=== PATIENT | male | born 1975 | race Caucasian/White ===

== ENCOUNTER 2018-12-26 15:46 | Inpatient (IN) | payer MEDICARE, MEDICAID ==
[~2018-12-26] VITALS: Ht 180.3 cm; Wt 91.7 kg
[~2018-12-26 15:46] MED LIST: ETOMIDATE 2 MG/ML 10 ML VIAL IVP ONE; VECURONIUM BROMIDE 10 MG/VIAL IVP ONE
[2018-12-26] MEDS ORDERED: SODIUM CHLORIDE 0.9% 1,000 ML IV ONE ×3 (16:00→17:15)
[2018-12-26] MEDS ORDERED: 0.9% SODIUM CHLORIDE 10 ML SYRINGE IVP PRN (16:00)
[2018-12-26] MEDS ORDERED: VECURONIUM BROMIDE 10 MG/VIAL IVP ONE (16:15)
[2018-12-26] MEDS ORDERED: ETOMIDATE 2 MG/ML 10 ML VIAL IVP ONE (16:15)
[2018-12-26 16:36] LABS: BASOPHILS % (AUTO) 0.4 % (0.0-2.0); HEMATOCRIT 39.1 % (41-53); HEMOGLOBIN 12.7 g/dL (13.5-17.5); LYMPHOCYTES # (AUTO) 1.8 K/uL (1.0-4.8); LYMPHOCYTES % (AUTO) 51.9 % (22.0-44.0); MEAN CORPUSCULAR HEMOGLOBIN 28.8 pg (26.0-34.0); MEAN CORPUSCULAR HGB CONC 32.6 G/dL (31.0-37.0); MEAN CORPUSCULAR VOLUME 88 fL (80-100); MONOCYTES # (AUTO) 0.2 K/uL (0.1-1.0); MONOCYTES % (AUTO) 6.3 % (2.0-9.0); NEUTROPHILS # (AUTO) 1.3 K/uL (1.8-7.7); NEUTROPHILS % (AUTO) 39.4 % (40.0-70.0); RED BLOOD CELL COUNT(AUTO) 4.43 MIL/uL (4.50-5.90); RED CELL DISTRIBUTION WIDTH 14.9 % (11.5-14.5)
[2018-12-26 16:36] LABS: APPEARANCE,URINE CLOUDY (CLEAR); GLUCOSE, URINE (UA) NEGATIVE (NEGATIVE); KETONES,URINE NEGATIVE (NEGATIVE); LEUKOCYTE ESTERASE ,URINE NEGATIVE (NEGATIVE); NITRATE,URINE NEGATIVE (NEGATIVE); OCCULT BLOOD,URINE NEGATIVE (NEGATIVE); PROTEIN,URINE POS 1+ (NEGATIVE); UROBILINOGEN,URINE 0.2 mg/dL (<=1.0)
[2018-12-26 16:37] LABS: BILIRUBIN,URINE PRELIM. POSITIVE (NEGATIVE)
[2018-12-26 16:43] LABS: BACTERIA,URINE Few /HPF (None Seen); RBC,URINE None Seen /HPF (0-2); SQUAMOUS EPITHELIAL CELL,UR Rare /LPF (None Seen)
[2018-12-26] MEDS: PROPOFOL 1000 MG/ISO-OSM 100 ML IV PRN (16:44)
[2018-12-26 16:45] LABS: ANION GAP 12 mmol/L (8-16); CARBON DIOXIDE 19 mmol/L (22-29); CHLORIDE 105 mmol/L (98-107); CREATININE 1.91 mg/dL (0.60-1.30); GLOMERULAR FILTR. RATE CALC 38 mL/min (>60); GLUCOSE,RANDOM 173 mg/dL (70-110); POTASSIUM 3.9 mmol/L (3.5-5.1); SODIUM SERUM 136 mmol/L (136-145); UREA NITROGEN, BLOOD 12 mg/dL (7-18)
[2018-12-26 16:47] LABS: B-TYPE NATRIURETIC PEPTIDE < 5 pg/mL (0-100)
[2018-12-26] MEDS ORDERED: ACETAMINOPHEN 1000 MG/ISO-OSM 100 ML IV ONE ×2 (16:52→17:00)
[2018-12-26 16:55] LABS: INR 1.1 (0.9-1.1); PROTHROMBIN TIME 11.1 SEC (9.4-11.6)
[2018-12-26] MEDS ORDERED: ASPIRIN 300 MG RECTAL SUPPOSITORY PR ONE (17:00)
[2018-12-26 17:01] LABS: LACTIC ACID 3.2 mmol/L (0.4-2.0)
[2018-12-26 17:02] LABS: ABG A-A DIFF O2 413.1 mmHg (10-20.0); ABG BASE EXCESS -10.2 mmol/L (-2.0-3.0); ABG CARBOXYHEMOGLOBIN 1.1 % (0.0-1.5); ABG HCO3 16.7 mmol/L (22.0-26.0); ABG METHEMOGLOBIN 0.6 % (0.0-1.5); ABG OXYGEN CONTENT 18.4 mL/dL (15.0-23.0); ABG OXYGEN SATURATION 98.9 % (95.0-98.0); ABG OXYHEMOGLOBIN 97.2 % (94.0-100.0); ABG PCO2 50 mmHg (35-45); ABG TOTAL HEMOGLOBIN 13.1 G/dL (12.0-18.0); PO2, ARTERIAL BG 242.3 mmHg (88.0-96.0); SOURCE, BLOOD GAS ARTERIAL; TEMPERATURE, FAHRENHEIT, BG 103.6 FAHREN (96.0-98.6)
[2018-12-26 17:03] LABS: ABG PH 7.182 (7.35-7.450)
[2018-12-26 17:04] LABS: O2 DEVICE,BLOOD GAS VENTILATOR (ROOM AIR); PEEP,BG 5 cm H2O; SITE, BLOOD GAS RT RADIAL; VT, ABG 500 ml
[2018-12-26 17:09] LABS: ALANINE AMINOTRANSFERASE 22 U/L (12-78); ALBUMIN 3.1 g/dL (3.4-5.0); ALKALINE PHOSPHATASE 62 U/L (46-116); ASPARTATE AMINOTRANSFERASE 25 U/L (15-37); BILIRUBIN,TOTAL 0.4 mg/dL (0.1-1.0); CREATINE KINASE, TOTAL ONLY 99 U/L (39-308); TOTAL PROTEIN, SERUM 6.6 g/dL (6.4-8.2)
[2018-12-26 17:10] LABS: AMPHET/METH SCREEN,URINE POSITIVE (NEGATIVE); BARBITURATE SCREEN, URINE NEGATIVE (NEGATIVE); BENZODIAZEPINES SCREEN,URINE NEGATIVE (NEGATIVE); CANNABINOID SCREEN,URINE NEGATIVE (NEGATIVE); COCAINE SCREEN,URINE NEGATIVE (NEGATIVE); METHADONE SCREEN, URINE NEGATIVE (NEGATIVE); OPIATE SCREEN,URINE NEGATIVE (NEGATIVE)
[2018-12-26 17:13] LABS: PHENCYCLIDINE SCREEN,URINE NEGATIVE (NEGATIVE)
[2018-12-26] MEDS ORDERED: VANCOMYCIN HCL 1 GM/D5% WATER 200 ML IV ONE (17:30)
[2018-12-26] MEDS ORDERED: PIPERACILLIN/TAZO 3.375 GM/D5W 50 ML IV ONE (17:30)
[2018-12-26] MEDS ORDERED: ASPIRIN 600 MG RECTAL SUPPOSITORY PR ONE (17:30)
[2018-12-26 17:38] LABS: PLATELET COUNT (AUTO) 66 K/uL (150-450)
[2018-12-26] MEDS ORDERED: NOREPINEPHRINE 4 MG/D5%-WATER 250 ML IV PRN (18:19)
[2018-12-26] MEDS ORDERED: HEPARIN SODIUM 25000 UNITS/D5W 250 ML IV PRN (18:19)
[2018-12-26] MEDS ORDERED: HEPARIN SODIUM,PORCINE 5,000 UNITS/ML VIAL IVP PRN ×2 (18:30)
[2018-12-26] MEDS ORDERED: HEPARIN SODIUM,PORCINE 5,000 UNITS/ML VIAL IVP ONE ×2 (18:30)
[2018-12-26] MEDS ORDERED: POTASSIUM PHOS,M-BASIC-D-BASIC 30 MEQ in DEXTROSE 5%-WATER 150 ML IV ONE (19:00)
[2018-12-26] MEDS ORDERED: SODIUM CHLORIDE 0.9% 1,000 ML IV SCH (19:00)
[2018-12-26] MEDS ORDERED: BISACODYL 10 MG RECTAL RECTAL SUPPOSITORY PR PRN (19:00)
[2018-12-26 19:04] LABS: PATHOLOGY REVIEW, DIFF YES
[2018-12-26 19:11] LABS: OCCULT BLOOD,GASTRIC FLUID POSITIVE (NEGATIVE)
[2018-12-26] MEDS ORDERED: DEXTROSE 50%-WATER 25 GM/50 ML SYRINGE IVP PRN (19:15)
[2018-12-26] MEDS ORDERED: ACETAMINOPHEN 325 MG TABLET PO PRN (19:30)
[2018-12-26] MEDS ORDERED: CefTRIAXone 1 GM/DEXTROSE 50 ML IV SCH (20:00)
[2018-12-26] MEDS ORDERED: DOXYCYCLINE HYCLATE 100 MG in DEXTROSE 5%-WATER 100 ML IV SCH (21:00)
[2018-12-26] MEDS ORDERED: *CLINICAL-LEVOFLOXACIN IVPB DOSING CLINICAL ONE (21:15)
[2018-12-26] MEDS: RINGERS SOLUTION,LACTATED 1,000 ML IV SCH (22:35)
[2018-12-26] MEDS: LevETIRAcetam 500 MG in DEXTROSE 5%-WATER 100 ML IV SCH (22:41)
[2018-12-26] MEDS: IPRATROPIUM BROMIDE 0.5 MG/2.5 ML NEB SOLUTION NEB SCH (22:45)
[2018-12-26] MEDS: ALBUTEROL SULFATE 2.5 MG/0.5 ML NEB SOLUTION NEB SCH (22:45)
[2018-12-26] MEDS: LEVOFLOXACIN 750 MG/D5% WATER 150 ML IV SCH (22:51)
[2018-12-26] MEDS: DOCUSATE SODIUM 100 MG CAPSULE PO SCH (23:04)
[2018-12-26] MEDS: PANTOPRAZOLE SODIUM 40 MG/VIAL IVP SCH (23:05)
[2018-12-27] VITALS (7 sets, daily range): BP systolic 95–120; BP diastolic 58–75
[2018-12-27] MEDS: PIPERACILLIN/TAZO 3.375 GM/D5W 50 ML IV SCH ×4 (00:17→19:15)
[2018-12-27] MEDS: PROPOFOL 1000 MG/ISO-OSM 100 ML IV PRN ×5 (01:23→21:45)
[2018-12-27] MEDS: ALBUTEROL SULFATE 2.5 MG/0.5 ML NEB SOLUTION NEB SCH (02:00)
[2018-12-27] MEDS: IPRATROPIUM BROMIDE 0.5 MG/2.5 ML NEB SOLUTION NEB SCH (02:00)
[2018-12-27] MEDS ORDERED: NOREPINEPHRINE 4 MG/D5%-WATER 250 ML IV ONE (02:11)
[2018-12-27] MEDS: NOREPINEPHRINE 4 MG/D5%-WATER 250 ML IV PRN ×3 (02:22→20:46)
[2018-12-27] MEDS ORDERED: PNEUMOCOCCAL VACCINE POLYVALENT 0.5 ML VIAL [PPSV23] IM ONE (02:30)
[2018-12-27] MEDS: RINGERS SOLUTION,LACTATED 1,000 ML IV SCH ×3 (04:29→20:24)
[2018-12-27] MEDS: INSULIN LISPRO 100 UNITS/ML SQ PRN (05:03)
[2018-12-27 06:05] LABS: GLUCOSE,POINT OF CARE 99 MG/DL (70-110)
[2018-12-27 06:05] LABS: GLUCOSE,POINT OF CARE 144 MG/DL (70-110)
[2018-12-27 06:14] LABS: ALANINE AMINOTRANSFERASE 26 U/L (12-78); ALBUMIN 2.7 g/dL (3.4-5.0); ALKALINE PHOSPHATASE 53 U/L (46-116); ANION GAP 13 mmol/L (8-16); ASPARTATE AMINOTRANSFERASE 36 U/L (15-37); BILIRUBIN,TOTAL 0.4 mg/dL (0.1-1.0); CALCIUM, TOTAL 7.8 mg/dL (8.8-10.5); CARBON DIOXIDE 19 mmol/L (22-29); CHLORIDE 111 mmol/L (98-107); CREATININE 1.27 mg/dL (0.60-1.30); GLOMERULAR FILTR. RATE CALC > 60 mL/min (>60); GLUCOSE,RANDOM 103 mg/dL (70-110); PHOSPHORUS 2.1 mg/dL (2.5-4.9); POTASSIUM 3.2 mmol/L (3.5-5.1); SODIUM SERUM 143 mmol/L (136-145); THYROID STIMULATING HORMONE 1.51 uIU/mL (0.36-3.74); TOTAL PROTEIN, SERUM 5.9 g/dL (6.4-8.2); UREA NITROGEN, BLOOD 14 mg/dL (7-18)
[2018-12-27] MEDS: VANCOMYCIN HCL 750 MG in DEXTROSE 5%-WATER 250 ML IV SCH ×2 (06:33→19:14)
[2018-12-27] MEDS: DOCUSATE SODIUM 100 MG CAPSULE PO SCH ×2 (07:48→20:25)
[2018-12-27] MEDS: LevETIRAcetam 500 MG in DEXTROSE 5%-WATER 100 ML IV SCH ×2 (07:48→20:25)
[2018-12-27] MEDS ORDERED: SODIUM CHLORIDE 0.9% 250 ML IV ONE (07:52)
[2018-12-27] MEDS ORDERED: SODIUM CHLORIDE 0.9% 500 ML IV ONE (07:52)
[2018-12-27 08:13] LABS: ABG A-A DIFF O2 91.4 mmHg (10-20.0); ABG BASE EXCESS -9.9 mmol/L (-2.0-3.0); ABG CARBOXYHEMOGLOBIN 0.8 % (0.0-1.5); ABG HCO3 17.9 mmol/L (22.0-26.0); ABG METHEMOGLOBIN 0.3 % (0.0-1.5); ABG OXYGEN CONTENT 18.3 mL/dL (15.0-23.0); ABG OXYGEN SATURATION 98.6 % (95.0-98.0); ABG OXYHEMOGLOBIN 97.5 % (94.0-100.0); ABG PCO2 27 mmHg (35-45); ABG PH 7.368 (7.35-7.450); ABG TOTAL HEMOGLOBIN 13.2 G/dL (12.0-18.0); O2 DEVICE,BLOOD GAS VENTILATOR (ROOM AIR); PO2, ARTERIAL BG 125.9 mmHg (88.0-96.0); SITE, BLOOD GAS RT RADIAL; SOURCE, BLOOD GAS ARTERIAL; TEMPERATURE, FAHRENHEIT, BG 99.7 FAHREN (96.0-98.6)
[2018-12-27 08:14] LABS: PEEP,BG 5 cm H2O; VT, ABG 500 ml
[2018-12-27] MEDS: PANTOPRAZOLE SODIUM 40 MG/VIAL IVP SCH ×2 (09:00→20:25)
[2018-12-27] MEDS: POTASSIUM CHL 10 MEQ/WATER 50 ML IV PRN ×3 (09:08→11:28)
[2018-12-27] MEDS ORDERED: MAGNESIUM SULFATE 2 GM/WATER 50 ML IV ONE (10:00)
[2018-12-27] MEDS ORDERED: POTASSIUM PHOS,M-BASIC-D-BASIC 30 MEQ in DEXTROSE 5%-WATER 150 ML IV ONE (11:00)
[2018-12-27 15:58] LABS: GLUCOSE,POINT OF CARE 99 MG/DL (70-110)
[2018-12-27 19:50] LABS: ALANINE AMINOTRANSFERASE 309 U/L (12-78); ALBUMIN 2.7 g/dL (3.4-5.0); ALKALINE PHOSPHATASE 55 U/L (46-116); ANION GAP 9 mmol/L (8-16); ASPARTATE AMINOTRANSFERASE 215 U/L (15-37); BILIRUBIN,TOTAL 0.8 mg/dL (0.1-1.0); CARBON DIOXIDE 22 mmol/L (22-29); CHLORIDE 111 mmol/L (98-107); CREATININE 1.25 mg/dL (0.60-1.30); GLOMERULAR FILTR. RATE CALC > 60 mL/min (>60); GLUCOSE,RANDOM 133 mg/dL (70-110); MAGNESIUM 2.2 mg/dL (1.80-2.40); POTASSIUM 4.5 mmol/L (3.5-5.1); SODIUM SERUM 142 mmol/L (136-145); TOTAL PROTEIN, SERUM 5.9 g/dL (6.4-8.2); UREA NITROGEN, BLOOD 11 mg/dL (7-18)
[2018-12-27] MEDS: LEVOFLOXACIN 750 MG/D5% WATER 150 ML IV SCH (21:38)
[2018-12-27 22:10] LABS: GLUCOSE,POINT OF CARE 103 MG/DL (70-110)
[2018-12-28] VITALS (7 sets, daily range): BP systolic 91–117; BP diastolic 51–77
[2018-12-28] MEDS: PIPERACILLIN/TAZO 3.375 GM/D5W 50 ML IV SCH ×2 (00:02→05:08)
[2018-12-28] MEDS: INSULIN LISPRO 100 UNITS/ML SQ PRN ×3 (00:24→23:12)
[2018-12-28] MEDS: PROPOFOL 1000 MG/ISO-OSM 100 ML IV PRN ×5 (01:15→21:55)
[2018-12-28] MEDS: RINGERS SOLUTION,LACTATED 1,000 ML IV SCH (04:00)
[2018-12-28 04:43] LABS: BASOPHILS % (AUTO) 0.3 % (0.0-2.0); EOSINOPHILS % (AUTO) 0.2 % (1.0-6.0); HEMATOCRIT 35.6 % (41-53); HEMOGLOBIN 11.9 g/dL (13.5-17.5); LYMPHOCYTES # (AUTO) 0.6 K/uL (1.0-4.8); LYMPHOCYTES % (AUTO) 6.1 % (22.0-44.0); MEAN CORPUSCULAR HEMOGLOBIN 29.5 pg (26.0-34.0); MEAN CORPUSCULAR HGB CONC 33.4 G/dL (31.0-37.0); MEAN CORPUSCULAR VOLUME 88 fL (80-100); MONOCYTES # (AUTO) 0.4 K/uL (0.1-1.0); MONOCYTES % (AUTO) 4.2 % (2.0-9.0); NEUTROPHILS # (AUTO) 9.1 K/uL (1.8-7.7); RED BLOOD CELL COUNT(AUTO) 4.04 MIL/uL (4.50-5.90); RED CELL DISTRIBUTION WIDTH 15.5 % (11.5-14.5)
[2018-12-28 04:48] LABS: NEUTROPHILS % (AUTO) 89.2 % (40.0-70.0)
[2018-12-28 04:58] LABS: ANION GAP 9 mmol/L (8-16); CALCIUM, TOTAL 8.1 mg/dL (8.8-10.5); CARBON DIOXIDE 23 mmol/L (22-29); CHLORIDE 108 mmol/L (98-107); CREATININE 0.99 mg/dL (0.60-1.30); GLOMERULAR FILTR. RATE CALC > 60 mL/min (>60); GLUCOSE,RANDOM 110 mg/dL (70-110); SODIUM SERUM 140 mmol/L (136-145); UREA NITROGEN, BLOOD 10 mg/dL (7-18); VANCOMYCIN,RANDOM 7.1 mcg/mL (25.0-50.0)
[2018-12-28] MEDS: VANCOMYCIN HCL 750 MG in DEXTROSE 5%-WATER 250 ML IV SCH (06:08)
[2018-12-28] MEDS: LevETIRAcetam 500 MG in DEXTROSE 5%-WATER 100 ML IV SCH (08:10)
[2018-12-28] MEDS: PANTOPRAZOLE SODIUM 40 MG/VIAL IVP SCH ×2 (08:11→20:22)
[2018-12-28] MEDS: DOCUSATE SODIUM 100 MG CAPSULE PO SCH ×2 (08:11→20:44)
[2018-12-28 08:56] LABS: PLATELET COUNT (AUTO) 26 K/uL (150-450)
[2018-12-28 10:41] LABS: ABG A-A DIFF O2 86.9 mmHg (10-20.0); ABG BASE EXCESS -2.3 mmol/L (-2.0-3.0); ABG CARBOXYHEMOGLOBIN 0.3 % (0.0-1.5); ABG METHEMOGLOBIN 0.3 % (0.0-1.5); ABG OXYGEN CONTENT 16.9 mL/dL (15.0-23.0); ABG OXYGEN SATURATION 98.3 % (95.0-98.0); ABG OXYHEMOGLOBIN 97.7 % (94.0-100.0); ABG PCO2 35 mmHg (35-45); ABG TOTAL HEMOGLOBIN 12.2 G/dL (12.0-18.0); PO2, ARTERIAL BG 121.9 mmHg (88.0-96.0); SOURCE, BLOOD GAS ARTERIAL; TEMPERATURE, FAHRENHEIT, BG 98.7 FAHREN (96.0-98.6)
[2018-12-28] MEDS ORDERED: *CLINICAL-PERIPHERAL PARENTERAL NUTRITION DOSING CLINICAL ONE (10:45)
[2018-12-28 10:47] LABS: SITE, BLOOD GAS RT RADIAL
[2018-12-28 10:48] LABS: O2 DEVICE,BLOOD GAS VENTILATOR (ROOM AIR); PEEP,BG 5 cm H2O; VT, ABG 500 ml
[2018-12-28] MEDS: METOCLOPRAMIDE HCL 5 MG/ML 2 ML VIAL IVP SCH ×3 (11:02→23:14)
[2018-12-28] MEDS ORDERED: POTASSIUM CHLORIDE 20 MEQ in AMINO ACIDS 4.25%/D5W 1,000 ML IV SCH (12:00)
[2018-12-28] MEDS ORDERED: VANCOMYCIN HCL 1 GM/D5% WATER 200 ML IV SCH (14:00)
[2018-12-28] MEDS: ACETAMINOPHEN 325 MG TABLET PO PRN ×2 (14:05→20:22)
[2018-12-28 14:50] LABS: GLUCOSE,POINT OF CARE 106 MG/DL (70-110)
[2018-12-28 14:50] LABS: GLUCOSE,POINT OF CARE 102 MG/DL (70-110)
[2018-12-28 16:35] LABS: ABG BASE EXCESS -3.1 mmol/L (-2.0-3.0); ABG CARBOXYHEMOGLOBIN 0.4 % (0.0-1.5); ABG HCO3 22.9 mmol/L (22.0-26.0); ABG METHEMOGLOBIN 0.3 % (0.0-1.5); ABG OXYGEN CONTENT 16.1 mL/dL (15.0-23.0); ABG OXYGEN SATURATION 98.2 % (95.0-98.0); ABG OXYHEMOGLOBIN 97.5 % (94.0-100.0); ABG PCO2 26 mmHg (35-45); ABG PH 7.497 (7.35-7.450); ABG TOTAL HEMOGLOBIN 11.6 G/dL (12.0-18.0); SOURCE, BLOOD GAS ARTERIAL; TEMPERATURE, FAHRENHEIT, BG 100.2 FAHREN (96.0-98.6)
[2018-12-28 16:36] LABS: O2 DEVICE,BLOOD GAS VENTILATOR (ROOM AIR); SITE, BLOOD GAS RT RADIAL
[2018-12-28 16:37] LABS: PEEP,BG 5 cm H2O; PRESSURE SUPPORT, BG 8 cm H2O; VENT MODE, BG CPAP (ROOM AIR)
[2018-12-28] MEDS: ALBUTEROL SULFATE 2.5 MG/0.5 ML NEB SOLUTION NEB SCH ×2 (19:16→22:15)
[2018-12-28] MEDS: IPRATROPIUM BROMIDE 0.5 MG/2.5 ML NEB SOLUTION NEB SCH ×2 (19:16→22:15)
[2018-12-28] MEDS ORDERED: SODIUM CHLORIDE 0.9% 250 ML IV ONE (20:20)
[2018-12-28 21:15] LABS: GLUCOSE,POINT OF CARE 136 MG/DL (70-110)
[2018-12-28] MEDS: LEVOFLOXACIN 750 MG/D5% WATER 150 ML IV SCH (21:27)
[2018-12-28] MEDS ORDERED: [UNRECOGNIZED DRUG - OTHER] IV SCH ×6 (22:00)
[2018-12-28] MEDS ORDERED: PPN IV SCH ×6 (22:00)
[2018-12-28] MEDS ORDERED: POTASSIUM ACETATE IV SCH ×6 (22:00)
[2018-12-28] MEDS ORDERED: SODIUM CHLORIDE IV SCH ×6 (22:00)
[2018-12-29] VITALS: BP 113/66
[2018-12-29] MEDS: PROPOFOL 1000 MG/ISO-OSM 100 ML IV PRN ×6 (00:44→23:13)
[2018-12-29] MEDS: IPRATROPIUM BROMIDE 0.5 MG/2.5 ML NEB SOLUTION NEB SCH ×6 (03:25→23:42)
[2018-12-29] MEDS: ALBUTEROL SULFATE 2.5 MG/0.5 ML NEB SOLUTION NEB SCH ×6 (03:25→23:42)
[2018-12-29 04:00] VITALS: BP 103/63
[2018-12-29] MEDS: INSULIN LISPRO 100 UNITS/ML SQ PRN (04:25)
[2018-12-29 05:11] LABS: ANION GAP 9 mmol/L (8-16); CALCIUM, TOTAL 8.2 mg/dL (8.8-10.5); CARBON DIOXIDE 24 mmol/L (22-29); CHLORIDE 107 mmol/L (98-107); CREATININE 0.74 mg/dL (0.60-1.30); GLOMERULAR FILTR. RATE CALC > 60 mL/min (>60); GLUCOSE,RANDOM 118 mg/dL (70-110); POTASSIUM 3.8 mmol/L (3.5-5.1); SODIUM SERUM 140 mmol/L (136-145); UREA NITROGEN, BLOOD 11 mg/dL (7-18)
[2018-12-29 07:40] LABS: GLUCOSE,POINT OF CARE 134 MG/DL (70-110)
[2018-12-29 07:40] LABS: GLUCOSE,POINT OF CARE 117 MG/DL (70-110)
[2018-12-29 07:51] LABS: BASOPHILS % (AUTO) 0.3 % (0.0-2.0); EOSINOPHILS % (AUTO) 0.8 % (1.0-6.0); HEMATOCRIT 32.9 % (41-53); HEMOGLOBIN 10.8 g/dL (13.5-17.5); LYMPHOCYTES # (AUTO) 0.8 K/uL (1.0-4.8); LYMPHOCYTES % (AUTO) 7.7 % (22.0-44.0); MEAN CORPUSCULAR HEMOGLOBIN 29.3 pg (26.0-34.0); MEAN CORPUSCULAR HGB CONC 32.9 G/dL (31.0-37.0); MEAN CORPUSCULAR VOLUME 89 fL (80-100); MONOCYTES # (AUTO) 0.3 K/uL (0.1-1.0); MONOCYTES % (AUTO) 2.8 % (2.0-9.0); NEUTROPHILS # (AUTO) 8.7 K/uL (1.8-7.7); PLATELET COUNT (AUTO) 33 K/uL (150-450); RED BLOOD CELL COUNT(AUTO) 3.69 MIL/uL (4.50-5.90); RED CELL DISTRIBUTION WIDTH 15.4 % (11.5-14.5)
[2018-12-29 07:52] LABS: NEUTROPHILS % (AUTO) 88.4 % (40.0-70.0)
[2018-12-29 08:00] VITALS: BP 102/60
[2018-12-29] MEDS: PANTOPRAZOLE SODIUM 40 MG/VIAL IVP SCH ×2 (08:26→20:05)
[2018-12-29] MEDS: METOCLOPRAMIDE HCL 5 MG/ML 2 ML VIAL IVP SCH ×2 (08:26→17:37)
[2018-12-29] MEDS: DOCUSATE SODIUM 100 MG CAPSULE PO SCH ×2 (08:26→20:05)
[2018-12-29 10:35] LABS: ABG A-A DIFF O2 118.4 mmHg (10-20.0); ABG BASE EXCESS -0.2 mmol/L (-2.0-3.0); ABG CARBOXYHEMOGLOBIN 0.4 % (0.0-1.5); ABG HCO3 24.7 mmol/L (22.0-26.0); ABG METHEMOGLOBIN 0.3 % (0.0-1.5); ABG OXYGEN CONTENT 15.1 mL/dL (15.0-23.0); ABG OXYGEN SATURATION 96.7 % (95.0-98.0); ABG PCO2 35 mmHg (35-45); ABG PH 7.447 (7.35-7.450); ABG TOTAL HEMOGLOBIN 11.1 G/dL (12.0-18.0); PO2, ARTERIAL BG 89.4 mmHg (88.0-96.0); SOURCE, BLOOD GAS ARTERIAL; TEMPERATURE, FAHRENHEIT, BG 100.1 FAHREN (96.0-98.6)
[2018-12-29 10:36] LABS: O2 DEVICE,BLOOD GAS VENTILATOR (ROOM AIR); PEEP,BG 5 cm H2O; SITE, BLOOD GAS LFT RADIAL; SPONTANEOUS VT, BG 593 ml; VT, ABG 500 ml
[2018-12-29 12:00] VITALS: BP 113/63
[2018-12-29 15:00] LABS: ORGANISM ID Not indicated.; S PNEUMO SOURCE Urine; STREP PNEUMONIAE AG URINE Negative (Negative); STREP.PNEUMO BODY FLUID CULT. Not Indicated
[2018-12-29 16:00] VITALS: BP 120/68
[2018-12-29] MEDS: ACETAMINOPHEN 325 MG TABLET PO PRN (19:58)
[2018-12-29 20:00] VITALS: BP 99/62
[2018-12-29] MEDS ORDERED: POTASSIUM PHOS,M-BASIC-D-BASIC 15 MEQ in DEXTROSE 5%-WATER 50 ML IV ONE (21:45)
[2018-12-29] MEDS ORDERED: PPN SOLUTION 1 EA, SODIUM CHLORIDE 70 MEQ, SODIUM PHOS,M-BASIC-D-BASIC 30 MEQ, POTASSIU... IV SCH ×7 (22:00)
[2018-12-29 22:35] LABS: GLUCOSE,POINT OF CARE 117 MG/DL (70-110)
[2018-12-29] MEDS: LEVOFLOXACIN 750 MG/D5% WATER 150 ML IV SCH (23:04)
[2018-12-29] MEDS ORDERED: SODIUM CHLORIDE 0.9% 250 ML IV ONE (23:12)
[2018-12-30] VITALS: BP 117/80
[2018-12-30] MEDS ORDERED: GEMF600T89 PO (00:37)
[2018-12-30] MEDS ORDERED: OLAN15TA18 PO (00:37)
[2018-12-30] MEDS ORDERED: ATOR10TA69 PO (00:37)
[2018-12-30] MEDS ORDERED: BENZ1TAB10 PO (00:37)
[2018-12-30] MEDS ORDERED: LITH300C3 PO (00:37)
[2018-12-30] MEDS ORDERED: ARIP30TA11 PO (00:37)
[2018-12-30] MEDS ORDERED: ESCI10TA54 PO (00:37)
[2018-12-30] MEDS ORDERED: CHLO50 PO (00:37)
[2018-12-30] MEDS ORDERED: IBUP-2077 PO (00:37)
[2018-12-30] MEDS ORDERED: CLOZ100T31 PO (00:37)
[2018-12-30] MEDS: METOCLOPRAMIDE HCL 5 MG/ML 2 ML VIAL IVP SCH ×4 (00:39→23:37)
[2018-12-30] MEDS: IPRATROPIUM BROMIDE 0.5 MG/2.5 ML NEB SOLUTION NEB SCH ×6 (02:40→22:29)
[2018-12-30] MEDS: ALBUTEROL SULFATE 2.5 MG/0.5 ML NEB SOLUTION NEB SCH ×6 (02:41→22:29)
[2018-12-30] MEDS: PROPOFOL 1000 MG/ISO-OSM 100 ML IV PRN ×4 (03:32→23:38)
[2018-12-30 04:00] VITALS: BP 106/63
[2018-12-30 04:50] LABS: GLUCOSE,POINT OF CARE 112 MG/DL (70-110)
[2018-12-30 04:50] LABS: GLUCOSE,POINT OF CARE 117 MG/DL (70-110)
[2018-12-30 05:01] LABS: ANION GAP 9 mmol/L (8-16); CALCIUM, TOTAL 8.4 mg/dL (8.8-10.5); CARBON DIOXIDE 24 mmol/L (22-29); CHLORIDE 107 mmol/L (98-107); CREATININE 0.62 mg/dL (0.60-1.30); GLOMERULAR FILTR. RATE CALC > 60 mL/min (>60); GLUCOSE,RANDOM 108 mg/dL (70-110); PHOSPHORUS 2.7 mg/dL (2.5-4.9); POTASSIUM 3.5 mmol/L (3.5-5.1); SODIUM SERUM 140 mmol/L (136-145); UREA NITROGEN, BLOOD 12 mg/dL (7-18); VANCOMYCIN,RANDOM 0.1 mcg/mL (25.0-50.0)
[2018-12-30] MEDS: POTASSIUM CHL 10 MEQ/WATER 50 ML IV PRN ×3 (05:58→10:36)
[2018-12-30 07:32] LABS: BASOPHILS % (AUTO) 0.3 % (0.0-2.0); EOSINOPHILS % (AUTO) 2.3 % (1.0-6.0); HEMOGLOBIN 9.8 g/dL (13.5-17.5); LYMPHOCYTES # (AUTO) 0.5 K/uL (1.0-4.8); LYMPHOCYTES % (AUTO) 8.6 % (22.0-44.0); MEAN CORPUSCULAR HEMOGLOBIN 29.3 pg (26.0-34.0); MEAN CORPUSCULAR HGB CONC 32.7 G/dL (31.0-37.0); MEAN CORPUSCULAR VOLUME 89 fL (80-100); MONOCYTES # (AUTO) 0.3 K/uL (0.1-1.0); MONOCYTES % (AUTO) 5.4 % (2.0-9.0); NEUTROPHILS # (AUTO) 5.2 K/uL (1.8-7.7); NEUTROPHILS % (AUTO) 83.4 % (40.0-70.0); PLATELET COUNT (AUTO) 55 K/uL (150-450); RED BLOOD CELL COUNT(AUTO) 3.36 MIL/uL (4.50-5.90); RED CELL DISTRIBUTION WIDTH 15.1 % (11.5-14.5)
[2018-12-30 08:00] VITALS: BP 115/65
[2018-12-30 08:06] LABS: ABG A-A DIFF O2 86.9 mmHg (10-20.0); ABG BASE EXCESS -1.5 mmol/L (-2.0-3.0); ABG CARBOXYHEMOGLOBIN 1.1 % (0.0-1.5); ABG HCO3 23.6 mmol/L (22.0-26.0); ABG METHEMOGLOBIN 0.3 % (0.0-1.5); ABG OXYGEN CONTENT 17.2 mL/dL (15.0-23.0); ABG OXYGEN SATURATION 98.4 % (95.0-98.0); ABG PCO2 37 mmHg (35-45); ABG PH 7.415 (7.35-7.450); ABG TOTAL HEMOGLOBIN 12.5 G/dL (12.0-18.0); PO2, ARTERIAL BG 119.9 mmHg (88.0-96.0); SOURCE, BLOOD GAS ARTERIAL; TEMPERATURE, FAHRENHEIT, BG 98.6 FAHREN (96.0-98.6)
[2018-12-30 08:07] LABS: O2 DEVICE,BLOOD GAS VENTILATOR (ROOM AIR); PEEP,BG 5 cm H2O; SITE, BLOOD GAS RT RADIAL; VT, ABG 500 ml
[2018-12-30] MEDS: PANTOPRAZOLE SODIUM 40 MG/VIAL IVP SCH ×2 (08:53→21:06)
[2018-12-30] MEDS: DOCUSATE SODIUM 100 MG CAPSULE PO SCH ×2 (08:53→21:06)
[2018-12-30 12:00] VITALS: BP 111/63
[2018-12-30 13:55] LABS: GLUCOSE,POINT OF CARE 114 MG/DL (70-110)
[2018-12-30] MEDS: ACETAMINOPHEN 325 MG TABLET PO PRN (15:56)
[2018-12-30 16:00] VITALS: BP 102/54
[2018-12-30 19:41] LABS: GLUCOSE,POINT OF CARE 106 MG/DL (70-110)
[2018-12-30 20:00] VITALS: BP 97/51
[2018-12-30] MEDS: PPN SOLUTION 1 EA, SODIUM CHLORIDE 70 MEQ, SODIUM PHOS,M-BASIC-D-BASIC 30 MEQ, POTASSIU... IV SCH ×7 (22:23)
[2018-12-30] MEDS: LEVOFLOXACIN 750 MG/D5% WATER 150 ML IV SCH (22:24)
[2018-12-31] VITALS: BP 112/60
[2018-12-31 00:24] LABS: GLUCOSE,POINT OF CARE 114 MG/DL (70-110)
[2018-12-31] MEDS: ACETAMINOPHEN 325 MG TABLET PO PRN ×2 (01:38→21:41)
[2018-12-31] MEDS: IPRATROPIUM BROMIDE 0.5 MG/2.5 ML NEB SOLUTION NEB SCH ×6 (02:36→23:46)
[2018-12-31] MEDS: ALBUTEROL SULFATE 2.5 MG/0.5 ML NEB SOLUTION NEB SCH ×6 (02:36→23:46)
[2018-12-31] MEDS: PROPOFOL 1000 MG/ISO-OSM 100 ML IV PRN ×2 (03:11→07:00)
[2018-12-31] MEDS ORDERED: SODIUM CHLORIDE 0.9% 250 ML IV ONE ×2 (03:13→21:39)
[2018-12-31 04:00] VITALS: BP 132/73
[2018-12-31 04:59] LABS: BASOPHILS % (AUTO) 0.5 % (0.0-2.0); EOSINOPHILS % (AUTO) 3.4 % (1.0-6.0); HEMATOCRIT 30.2 % (41-53); HEMOGLOBIN 9.8 g/dL (13.5-17.5); LYMPHOCYTES # (AUTO) 0.6 K/uL (1.0-4.8); LYMPHOCYTES % (AUTO) 17.4 % (22.0-44.0); MEAN CORPUSCULAR HGB CONC 32.5 G/dL (31.0-37.0); MEAN CORPUSCULAR VOLUME 89 fL (80-100); MONOCYTES # (AUTO) 0.3 K/uL (0.1-1.0); MONOCYTES % (AUTO) 9.3 % (2.0-9.0); NEUTROPHILS # (AUTO) 2.5 K/uL (1.8-7.7); NEUTROPHILS % (AUTO) 69.4 % (40.0-70.0); PLATELET COUNT (AUTO) 92 K/uL (150-450); RED BLOOD CELL COUNT(AUTO) 3.39 MIL/uL (4.50-5.90); RED CELL DISTRIBUTION WIDTH 14.9 % (11.5-14.5)
[2018-12-31 05:06] LABS: ANION GAP 9 mmol/L (8-16); CALCIUM, TOTAL 8.7 mg/dL (8.8-10.5); CARBON DIOXIDE 24 mmol/L (22-29); CHLORIDE 108 mmol/L (98-107); CREATININE 0.66 mg/dL (0.60-1.30); GLOMERULAR FILTR. RATE CALC > 60 mL/min (>60); GLUCOSE,RANDOM 111 mg/dL (70-110); PHOSPHORUS 3.1 mg/dL (2.5-4.9); POTASSIUM 3.4 mmol/L (3.5-5.1); SODIUM SERUM 141 mmol/L (136-145); UREA NITROGEN, BLOOD 13 mg/dL (7-18)
[2018-12-31] MEDS: POTASSIUM CHLORIDE 20 MEQ ER TABLET PO PRN (07:00)
[2018-12-31 07:45] LABS: GLUCOSE,POINT OF CARE 120 MG/DL (70-110)
[2018-12-31 08:00] VITALS: BP 115/73
[2018-12-31] MEDS: METOCLOPRAMIDE HCL 5 MG/ML 2 ML VIAL IVP SCH ×3 (08:17→23:39)
[2018-12-31] MEDS: PANTOPRAZOLE SODIUM 40 MG/VIAL IVP SCH ×2 (08:18→23:39)
[2018-12-31] MEDS: DOCUSATE SODIUM 100 MG CAPSULE PO SCH ×2 (08:18→21:40)
[2018-12-31 12:00] VITALS: BP 110/59
[2018-12-31 12:25] LABS: GLUCOSE,POINT OF CARE 108 MG/DL (70-110)
[2018-12-31 13:28] LABS: ABG A-A DIFF O2 114.5 mmHg (10-20.0); ABG BASE EXCESS -3.4 mmol/L (-2.0-3.0); ABG CARBOXYHEMOGLOBIN 0.1 % (0.0-1.5); ABG HCO3 22.3 mmol/L (22.0-26.0); ABG METHEMOGLOBIN 0.3 % (0.0-1.5); ABG OXYGEN CONTENT 15.2 mL/dL (15.0-23.0); ABG OXYGEN SATURATION 97.1 % (95.0-98.0); ABG OXYHEMOGLOBIN 96.7 % (94.0-100.0); ABG PCO2 31 mmHg (35-45); ABG PH 7.444 (7.35-7.450); ABG TOTAL HEMOGLOBIN 11.1 G/dL (12.0-18.0); PO2, ARTERIAL BG 98.8 mmHg (88.0-96.0); SOURCE, BLOOD GAS ARTERIAL; TEMPERATURE, FAHRENHEIT, BG 99.5 FAHREN (96.0-98.6)
[2018-12-31 13:29] LABS: O2 DEVICE,BLOOD GAS VENTILATOR (ROOM AIR); PEEP,BG 5 cm H2O; PRESSURE SUPPORT, BG 8 cm H2O; SITE, BLOOD GAS RT RADIAL; SPONTANEOUS VT, BG 480 ml; VENT MODE, BG SPONTANEOUS (ROOM AIR)
[2018-12-31 16:00] VITALS: BP 140/84
[2018-12-31] MEDS ORDERED: ONDANSETRON HCL 4 MG/2 ML VIAL IVP PRN (19:00)
[2018-12-31 19:29] LABS: GLUCOSE,POINT OF CARE 121 MG/DL (70-110)
[2018-12-31 20:00] VITALS: BP 136/77
[2018-12-31] MEDS: LEVOFLOXACIN 750 MG/D5% WATER 150 ML IV SCH (21:41)
[2018-12-31] MEDS: PPN SOLUTION 1 EA, SODIUM CHLORIDE 70 MEQ, SODIUM PHOS,M-BASIC-D-BASIC 30 MEQ, POTASSIU... IV SCH ×7 (23:39)
[2019-01-01] VITALS (8 sets, daily range): BP systolic 120–143; BP diastolic 78–93
[2019-01-01 02:10] LABS: GLUCOSE,POINT OF CARE 117 MG/DL (70-110)
[2019-01-01] MEDS: IPRATROPIUM BROMIDE 0.5 MG/2.5 ML NEB SOLUTION NEB SCH ×7 (03:24→23:08)
[2019-01-01] MEDS: ALBUTEROL SULFATE 2.5 MG/0.5 ML NEB SOLUTION NEB SCH ×7 (03:24→23:08)
[2019-01-01 05:17] LABS: BASOPHILS % (AUTO) 0.4 % (0.0-2.0); EOSINOPHILS % (AUTO) 0.7 % (1.0-6.0); HEMATOCRIT 34.7 % (41-53); HEMOGLOBIN 11.8 g/dL (13.5-17.5); LYMPHOCYTES # (AUTO) 0.6 K/uL (1.0-4.8); LYMPHOCYTES % (AUTO) 11.8 % (22.0-44.0); MEAN CORPUSCULAR HEMOGLOBIN 30.1 pg (26.0-34.0); MEAN CORPUSCULAR HGB CONC 34.1 G/dL (31.0-37.0); MEAN CORPUSCULAR VOLUME 88 fL (80-100); MONOCYTES # (AUTO) 0.5 K/uL (0.1-1.0); MONOCYTES % (AUTO) 9.4 % (2.0-9.0); NEUTROPHILS # (AUTO) 3.9 K/uL (1.8-7.7); NEUTROPHILS % (AUTO) 77.7 % (40.0-70.0); PLATELET COUNT (AUTO) 156 K/uL (150-450); RED BLOOD CELL COUNT(AUTO) 3.94 MIL/uL (4.50-5.90); RED CELL DISTRIBUTION WIDTH 14.4 % (11.5-14.5)
[2019-01-01 05:23] LABS: ANION GAP 9 mmol/L (8-16); CALCIUM, TOTAL 9.3 mg/dL (8.8-10.5); CARBON DIOXIDE 26 mmol/L (22-29); CHLORIDE 105 mmol/L (98-107); CREATININE 0.72 mg/dL (0.60-1.30); GLOMERULAR FILTR. RATE CALC > 60 mL/min (>60); GLUCOSE,RANDOM 132 mg/dL (70-110); PHOSPHORUS 3.1 mg/dL (2.5-4.9); POTASSIUM 3.2 mmol/L (3.5-5.1); SODIUM SERUM 140 mmol/L (136-145); UREA NITROGEN, BLOOD 18 mg/dL (7-18)
[2019-01-01] MEDS: POTASSIUM CHL 10 MEQ/WATER 50 ML IV PRN ×3 (06:17→10:00)
[2019-01-01 08:15] LABS: GLUCOSE,POINT OF CARE 122 MG/DL (70-110)
[2019-01-01] MEDS: METOCLOPRAMIDE HCL 5 MG/ML 2 ML VIAL IVP SCH (08:25)
[2019-01-01] MEDS: PANTOPRAZOLE SODIUM 40 MG/VIAL IVP SCH (08:25)
[2019-01-01] MEDS: DOCUSATE SODIUM 100 MG CAPSULE PO SCH ×2 (09:00→21:08)
[2019-01-01] MEDS: PANTOPRAZOLE SODIUM 40 MG DR TABLET PO SCH (09:00)
[2019-01-01] MEDS: LEVOFLOXACIN 750 MG/D5% WATER 150 ML IV SCH (21:08)
[2019-01-01] MEDS: ACETAMINOPHEN 325 MG TABLET PO PRN (21:08)
[2019-01-01] MEDS ORDERED: SODIUM CHLORIDE 0.9% 250 ML IV ONE (21:16)
[2019-01-02 00:44] VITALS: BP 145/89
[2019-01-02] MEDS: ALBUTEROL SULFATE 2.5 MG/0.5 ML NEB SOLUTION NEB SCH ×7 (03:37→23:33)
[2019-01-02] MEDS: IPRATROPIUM BROMIDE 0.5 MG/2.5 ML NEB SOLUTION NEB SCH ×7 (03:37→23:33)
[2019-01-02 05:17] VITALS: BP 131/77
[2019-01-02 06:45] LABS: BASOPHILS % (AUTO) 0.7 % (0.0-2.0); EOSINOPHILS % (AUTO) 2.3 % (1.0-6.0); HEMATOCRIT 34.4 % (41-53); HEMOGLOBIN 11.4 g/dL (13.5-17.5); LYMPHOCYTES # (AUTO) 0.7 K/uL (1.0-4.8); LYMPHOCYTES % (AUTO) 16.7 % (22.0-44.0); MEAN CORPUSCULAR HGB CONC 33.1 G/dL (31.0-37.0); MEAN CORPUSCULAR VOLUME 88 fL (80-100); MONOCYTES # (AUTO) 0.5 K/uL (0.1-1.0); MONOCYTES % (AUTO) 10.9 % (2.0-9.0); NEUTROPHILS # (AUTO) 2.9 K/uL (1.8-7.7); NEUTROPHILS % (AUTO) 69.4 % (40.0-70.0); PLATELET COUNT (AUTO) 237 K/uL (150-450); RED BLOOD CELL COUNT(AUTO) 3.94 MIL/uL (4.50-5.90); RED CELL DISTRIBUTION WIDTH 14.3 % (11.5-14.5)
[2019-01-02 07:04] LABS: ANION GAP 11 mmol/L (8-16); CALCIUM, TOTAL 9.2 mg/dL (8.8-10.5); CARBON DIOXIDE 23 mmol/L (22-29); CHLORIDE 106 mmol/L (98-107); CREATININE 0.62 mg/dL (0.60-1.30); GLOMERULAR FILTR. RATE CALC > 60 mL/min (>60); GLUCOSE,RANDOM 117 mg/dL (70-110); PHOSPHORUS 2.8 mg/dL (2.5-4.9); POTASSIUM 3.1 mmol/L (3.5-5.1); SODIUM SERUM 140 mmol/L (136-145); UREA NITROGEN, BLOOD 24 mg/dL (7-18)
[2019-01-02 08:02] VITALS: BP 130/82
[2019-01-02] MEDS: DOCUSATE SODIUM 100 MG CAPSULE PO SCH ×2 (08:18→21:29)
[2019-01-02] MEDS: PANTOPRAZOLE SODIUM 40 MG DR TABLET PO SCH (08:49)
[2019-01-02] MEDS: POTASSIUM CHLORIDE 20 MEQ ER TABLET PO PRN ×2 (08:50→15:50)
[2019-01-02 11:25] VITALS: BP 134/84
[2019-01-02 18:40] VITALS: BP 133/84
[2019-01-02 20:34] VITALS: BP_SYST 107; BP_SYST 132; BP_DIAS 74; BP_DIAS 76
[2019-01-02] MEDS: LEVOFLOXACIN 750 MG/D5% WATER 150 ML IV SCH (21:30)
[2019-01-02] MEDS ORDERED: ZOLPIDEM TARTRATE 5 MG TABLET PO PRN (23:45)
[2019-01-03 00:23] VITALS: BP 120/81
[2019-01-03] MEDS: ALBUTEROL SULFATE 2.5 MG/0.5 ML NEB SOLUTION NEB SCH ×7 (03:00→23:00)
[2019-01-03] MEDS: IPRATROPIUM BROMIDE 0.5 MG/2.5 ML NEB SOLUTION NEB SCH ×7 (03:00→23:00)
[2019-01-03 04:38] VITALS: BP 128/76
[2019-01-03 07:12] VITALS: BP 124/75
[2019-01-03] MEDS: DOCUSATE SODIUM 100 MG CAPSULE PO SCH ×2 (09:25→20:08)
[2019-01-03] MEDS: ACETAMINOPHEN 325 MG TABLET PO PRN (09:25)
[2019-01-03] MEDS: PANTOPRAZOLE SODIUM 40 MG DR TABLET PO SCH (09:25)
[2019-01-03 11:31] VITALS: BP 125/84
[2019-01-03 15:32] VITALS: BP 126/87
[2019-01-03 19:35] VITALS: BP 136/82
[2019-01-03] MEDS: LEVOFLOXACIN 750 MG/D5% WATER 150 ML IV SCH (21:46)
[2019-01-04 00:08] VITALS: BP 131/83
[2019-01-04] MEDS: IPRATROPIUM BROMIDE 0.5 MG/2.5 ML NEB SOLUTION NEB SCH ×6 (02:40→23:15)
[2019-01-04] MEDS: ALBUTEROL SULFATE 2.5 MG/0.5 ML NEB SOLUTION NEB SCH ×6 (02:40→23:15)
[2019-01-04 04:00] VITALS: BP 131/78
[2019-01-04 07:48] VITALS: BP 124/80
[2019-01-04] MEDS: DOCUSATE SODIUM 100 MG CAPSULE PO SCH ×2 (07:57→20:38)
[2019-01-04] MEDS: PANTOPRAZOLE SODIUM 40 MG DR TABLET PO SCH (07:57)
[2019-01-04] MEDS ORDERED: NICO-703 TD (09:55)
[2019-01-04] MEDS ORDERED: BENZ0.5T44 PO (09:55)
[2019-01-04] MEDS ORDERED: CHLO100T24 PO (09:55)
[2019-01-04] MEDS ORDERED: DSS100 PO (09:55)
[2019-01-04 11:08] VITALS: BP 122/75
[2019-01-04 11:26] LABS: GLUCOMETER DEV NAME(LOC) 5S.1; GLUCOSE,POINT OF CARE 90 MG/DL (70-110)
[2019-01-04 15:34] VITALS: BP 119/80
[2019-01-04 16:51] LABS: GLUCOMETER DEV NAME(LOC) 5N.2; GLUCOSE,POINT OF CARE 98 MG/DL (70-110)
[2019-01-04 16:52] LABS: GLUCOMETER DEV NAME(LOC) 5N.1; GLUCOSE,POINT OF CARE 90 MG/DL (70-110)
[2019-01-04 19:43] VITALS: BP 125/76
[2019-01-04] MEDS: ChlorproMAZINE HCL 100 MG TABLET PO SCH (20:38)
[2019-01-04] MEDS: LITHIUM CARBONATE 300 MG CAPSULE PO SCH (20:38)
[2019-01-04] MEDS: BENZTROPINE MESYLATE 1 MG TABLET PO SCH (20:38)
[2019-01-05] VITALS (7 sets, daily range): BP systolic 103–121; BP diastolic 66–78
[2019-01-05] MEDS: ALBUTEROL SULFATE 2.5 MG/0.5 ML NEB SOLUTION NEB SCH ×6 (03:14→22:39)
[2019-01-05] MEDS: IPRATROPIUM BROMIDE 0.5 MG/2.5 ML NEB SOLUTION NEB SCH ×6 (03:14→22:39)
[2019-01-05 06:08] LABS: BASOPHILS % (AUTO) 0.7 % (0.0-2.0); EOSINOPHILS % (AUTO) 2.1 % (1.0-6.0); HEMATOCRIT 39.3 % (41-53); HEMOGLOBIN 13.1 g/dL (13.5-17.5); LYMPHOCYTES # (AUTO) 1.5 K/uL (1.0-4.8); LYMPHOCYTES % (AUTO) 24.9 % (22.0-44.0); MEAN CORPUSCULAR HGB CONC 33.4 G/dL (31.0-37.0); MEAN CORPUSCULAR VOLUME 87 fL (80-100); MONOCYTES # (AUTO) 0.5 K/uL (0.1-1.0); MONOCYTES % (AUTO) 8.7 % (2.0-9.0); NEUTROPHILS # (AUTO) 3.8 K/uL (1.8-7.7); NEUTROPHILS % (AUTO) 63.6 % (40.0-70.0); PLATELET COUNT (AUTO) 375 K/uL (150-450); RED BLOOD CELL COUNT(AUTO) 4.53 MIL/uL (4.50-5.90); RED CELL DISTRIBUTION WIDTH 14.3 % (11.5-14.5)
[2019-01-05 06:35] LABS: ANION GAP 11 mmol/L (8-16); CALCIUM, TOTAL 9.5 mg/dL (8.8-10.5); CARBON DIOXIDE 21 mmol/L (22-29); CHLORIDE 107 mmol/L (98-107); CREATININE 0.74 mg/dL (0.60-1.30); GLOMERULAR FILTR. RATE CALC > 60 mL/min (>60); GLUCOSE,RANDOM 106 mg/dL (70-110); SODIUM SERUM 139 mmol/L (136-145); UREA NITROGEN, BLOOD 12 mg/dL (7-18)
[2019-01-05 07:06] LABS: GLUCOMETER DEV NAME(LOC) 5N.1; GLUCOSE,POINT OF CARE 89 MG/DL (70-110)
[2019-01-05 07:06] LABS: GLUCOMETER DEV NAME(LOC) 5N.1; GLUCOSE,POINT OF CARE 112 MG/DL (70-110)
[2019-01-05 07:06] LABS: GLUCOMETER DEV NAME(LOC) 5S.1; GLUCOSE,POINT OF CARE 102 MG/DL (70-110)
[2019-01-05] MEDS: LITHIUM CARBONATE 300 MG CAPSULE PO SCH ×2 (07:50→20:00)
[2019-01-05] MEDS: DOCUSATE SODIUM 100 MG CAPSULE PO SCH ×2 (07:51→20:00)
[2019-01-05] MEDS: POTASSIUM CHLORIDE 20 MEQ ER TABLET PO PRN (07:51)
[2019-01-05] MEDS: PANTOPRAZOLE SODIUM 40 MG DR TABLET PO SCH (07:51)
[2019-01-05] MEDS: CITALOPRAM HYDROBROMIDE 10 MG TABLET PO SCH (07:51)
[2019-01-05] MEDS ORDERED: DIPHENOXYLATE/ATROP 2.5-0.025 MG TABLET PO PRN (12:30)
[2019-01-05] MEDS: LACTOBAC ACID/BULG/BIFID/THERM TABLET PO SCH ×2 (15:56→20:01)
[2019-01-05] MEDS: BENZTROPINE MESYLATE 1 MG TABLET PO SCH (20:01)
[2019-01-05] MEDS: ChlorproMAZINE HCL 100 MG TABLET PO SCH (20:01)
[2019-01-06 00:45] LABS: GLUCOMETER DEV NAME(LOC) 5S.1; GLUCOSE,POINT OF CARE 120 MG/DL (70-110)
[2019-01-06] MEDS: IPRATROPIUM BROMIDE 0.5 MG/2.5 ML NEB SOLUTION NEB SCH ×4 (02:57→16:01)
[2019-01-06] MEDS: ALBUTEROL SULFATE 2.5 MG/0.5 ML NEB SOLUTION NEB SCH ×4 (02:57→16:01)
[2019-01-06 07:29] VITALS: BP 97/65
[2019-01-06] MEDS: DOCUSATE SODIUM 100 MG CAPSULE PO SCH (08:24)
[2019-01-06] MEDS: CITALOPRAM HYDROBROMIDE 10 MG TABLET PO SCH (08:24)
[2019-01-06] MEDS: LITHIUM CARBONATE 300 MG CAPSULE PO SCH (08:24)
[2019-01-06] MEDS: LACTOBAC ACID/BULG/BIFID/THERM TABLET PO SCH (08:24)
[2019-01-06] MEDS: PANTOPRAZOLE SODIUM 40 MG DR TABLET PO SCH (08:24)
[2019-01-06 11:30] VITALS: BP 103/65
[2019-01-06 11:41] LABS: GLUCOMETER DEV NAME(LOC) 5N.2; GLUCOSE,POINT OF CARE 87 MG/DL (70-110)
[2019-01-06 15:59] VITALS: BP 103/75
== END 2019-01-06 17:45 | DRG 870 ==
LOC: EDBD 15:48 → EMS 15:48 → ICU 19:07 → 5S 01-01 17:04 → 4E 01-05 18:41
PROVIDERS: ADMIT Internal Medicine; ATTEND Internal Medicine
PROC: 5A1955Z Respiratory Ventilation, Greater than 96 Consecutive Hours (ICD-10-PCS; principal; 2018-12-26)
PROC: 0BH17EZ Insertion of Endotracheal Airway into Trachea, Via Natural or Artificial Opening (ICD-10-PCS; 2018-12-26)
PROC: 3E0234Z Introduction of Serum, Toxoid and Vaccine into Muscle, Percutaneous Approach (ICD-10-PCS; 2018-12-27)
PROC: B54MZZA Ultrasonography of Right Upper Extremity Veins, Guidance (ICD-10-PCS; 2018-12-29)
PROC: 05HY33Z Insertion of Infusion Device into Upper Vein, Percutaneous Approach (ICD-10-PCS; 2018-12-29)
DX: A41.9 Sepsis, unspecified organism (principal); R65.21 Severe sepsis with septic shock; J96.02 Acute respiratory failure with hypercapnia; J18.1 Lobar pneumonia, unspecified organism; E43 Unspecified severe protein-calorie malnutrition; T67.0XXA Heatstroke and sunstroke, initial encounter; N17.9 Acute kidney failure, unspecified; G93.40 Encephalopathy, unspecified; K92.2 Gastrointestinal hemorrhage, unspecified; X30.XXXA Exposure to excessive natural heat, initial encounter; E83.39 Other disorders of phosphorus metabolism; F15.10 Other stimulant abuse, uncomplicated; E87.6 Hypokalemia; D69.6 Thrombocytopenia, unspecified; F19.10 Other psychoactive substance abuse, uncomplicated; E86.0 Dehydration; F25.0 Schizoaffective disorder, bipolar type; Z59.0 Homelessness; Z91.5 Personal history of self-harm; Z68.28 Body mass index [BMI] 28.0-28.9, adult; Z88.8 Allergy status to other drugs, medicaments and biological substances; Z23 Encounter for immunization
CPT/HCPCS: 36245; 36569; 36600; 70450; 71250; 76937; 82271; 82805; 83036; 83605; 83735; 84100; 84132; 84145; 84443; 87040; 87070; 87081; 87205; 87449; 87899; 92610; 93005; 93306; 94002; 94003; 94640; 95816; 96365; 97110; 97116; 97162; 97167; 97530; 97535; 99291; C9113; G0378; J0131; J0610; J0712; J1644; J1956; J2543; J2704; J2765; J3370; J3475; J3480; J3490; J7030; J7040; J7050; J7060; J7070; J7120; J7131

== ENCOUNTER 2019-01-06 18:07 | Inpatient (IN) | payer MEDICARE, MEDICAID ==
[~2019-01-06] VITALS: Ht 175.3 cm; Wt 70.4 kg
[~2019-01-06 18:07] MED LIST changes: +ARIP15TA2 PO; +ARIP30TA11 PO; +ATOR10TA84 PO; +BENZ0.5T44 PO; +BENZ1TAB10 PO; +CHLO100T24 PO; +CHLO50 PO; +CLOZ100T31 PO; +CLOZ25TA4 PO; +DIPH25 PO; +DOCU250C91 PO; +DSS100 PO; +ESCI10TA PO; +ESCI10TA54 PO; -ETOMIDATE 2 MG/ML 10 ML VIAL IVP ONE; +HALO5TAB2 PO; +IBUP-2077 PO; +LITH300C3 PO; +LORA1TAB3 PO; +LURA80 PO; +MIRT30 PO; +MOM30 PO; +NICO-703 TD; +OLAN10TA3 PO; +OLAN15TA18 PO; +PARO20TA24 PO; +SIME120L MC; -VECURONIUM BROMIDE 10 MG/VIAL IVP ONE; +ZOLP10TA7 PO
[2019-01-06 19:36] VITALS: BP 120/87
[2019-01-06] MEDS ORDERED: DOCUSATE SODIUM 100 MG CAPSULE PO PRN (20:00)
[2019-01-06] MEDS ORDERED: PETROLATUM,WHITE 28 GM JELLY TP PRN (20:00)
[2019-01-06] MEDS ORDERED: ONDANSETRON HCL 4 MG TABLET PO PRN (20:00)
[2019-01-06] MEDS ORDERED: MAGNESIUM HYDROXIDE SUSPENSION 30 ML UDCUP PO PRN (20:00)
[2019-01-06] MEDS ORDERED: IPRATROPIUM BROMIDE HFA 17 MCG/PUFF 12.9 GM INHALER IH PRN (20:00)
[2019-01-06] MEDS ORDERED: CloNIDine HCL 0.1 MG TABLET PO PRN (20:00)
[2019-01-06] MEDS ORDERED: NICOTINE 14 MG/24 HOUR PATCH TD PRN (20:00)
[2019-01-06] MEDS ORDERED: GuaiFENesin/D-METHORPHAN [SUGAR-FREE] 200-20MG/10 ML SYRUP UDCUP PO PRN (20:00)
[2019-01-06] MEDS ORDERED: LOPERAMIDE HCL 2 MG CAPSULE PO PRN (20:00)
[2019-01-06] MEDS ORDERED: MAG HYDROX/AL HYDROX/SIMETH ES 30 ML SUSPENSION UDCUP PO PRN (20:00)
[2019-01-06] MEDS ORDERED: ALBUTEROL SULFATE HFA 90 MCG/PUFF 8 GM INHALER IH PRN (20:00)
[2019-01-06] MEDS: LACTOBAC ACID/BULG/BIFID/THERM TABLET PO SCH (20:35)
[2019-01-06] MEDS: ChlorproMAZINE HCL 100 MG TABLET PO SCH (20:52)
[2019-01-06] MEDS: LITHIUM CARBONATE 300 MG CAPSULE PO SCH (20:52)
[2019-01-06] MEDS: BENZTROPINE MESYLATE 1 MG TABLET PO SCH (20:52)
[2019-01-07] MEDS: LACTOBAC ACID/BULG/BIFID/THERM TABLET PO SCH ×2 (08:26→16:35)
[2019-01-07] MEDS: LITHIUM CARBONATE 300 MG CAPSULE PO SCH ×2 (08:27→16:35)
[2019-01-07] MEDS: CITALOPRAM HYDROBROMIDE 10 MG TABLET PO SCH (09:09)
[2019-01-07 13:08] VITALS: BP 116/72
[2019-01-07 16:10] VITALS: BP 117/77
[2019-01-07] MEDS: ChlorproMAZINE HCL 100 MG TABLET PO SCH (20:54)
[2019-01-07] MEDS: BENZTROPINE MESYLATE 1 MG TABLET PO SCH (20:54)
[2019-01-08 01:23] VITALS: BP 128/82
[2019-01-08 06:09] LABS: BASOPHILS % (AUTO) 0.9 % (0.0-2.0); EOSINOPHILS % (AUTO) 3.1 % (1.0-6.0); HEMATOCRIT 41.4 % (41-53); HEMOGLOBIN 13.7 g/dL (13.5-17.5); LYMPHOCYTES # (AUTO) 1.6 K/uL (1.0-4.8); LYMPHOCYTES % (AUTO) 18.3 % (22.0-44.0); MEAN CORPUSCULAR HEMOGLOBIN 29.1 pg (26.0-34.0); MEAN CORPUSCULAR HGB CONC 33.1 G/dL (31.0-37.0); MEAN CORPUSCULAR VOLUME 88 fL (80-100); MONOCYTES # (AUTO) 0.6 K/uL (0.1-1.0); MONOCYTES % (AUTO) 6.9 % (2.0-9.0); NEUTROPHILS % (AUTO) 70.8 % (40.0-70.0); PLATELET COUNT (AUTO) 388 K/uL (150-450); RED BLOOD CELL COUNT(AUTO) 4.72 MIL/uL (4.50-5.90); RED CELL DISTRIBUTION WIDTH 14.5 % (11.5-14.5)
[2019-01-08 06:29] LABS: ANION GAP 9 mmol/L (8-16); CALCIUM, TOTAL 9.5 mg/dL (8.8-10.5); CARBON DIOXIDE 25 mmol/L (22-29); CHLORIDE 105 mmol/L (98-107); CREATININE 0.82 mg/dL (0.60-1.30); GLOMERULAR FILTR. RATE CALC > 60 mL/min (>60); GLUCOSE,RANDOM 89 mg/dL (70-110); POTASSIUM 4.1 mmol/L (3.5-5.1); SODIUM SERUM 139 mmol/L (136-145); UREA NITROGEN, BLOOD 17 mg/dL (7-18)
[2019-01-08] MEDS: CITALOPRAM HYDROBROMIDE 10 MG TABLET PO SCH (08:36)
[2019-01-08] MEDS: LITHIUM CARBONATE 300 MG CAPSULE PO SCH ×2 (08:36→16:51)
[2019-01-08] MEDS: MULTIVITAMINS WITH MINERALS, THERAPEUTIC TABLET PO SCH (08:36)
[2019-01-08] MEDS: LACTOBAC ACID/BULG/BIFID/THERM TABLET PO SCH ×2 (08:36→16:51)
[2019-01-08 09:55] VITALS: BP 130/75
[2019-01-08 16:30] VITALS: BP 109/68
[2019-01-08] MEDS: ChlorproMAZINE HCL 100 MG TABLET PO SCH (20:36)
[2019-01-08] MEDS: BENZTROPINE MESYLATE 1 MG TABLET PO SCH (20:36)
[2019-01-09] MEDS: MULTIVITAMINS WITH MINERALS, THERAPEUTIC TABLET PO SCH (08:20)
[2019-01-09] MEDS: LACTOBAC ACID/BULG/BIFID/THERM TABLET PO SCH ×2 (08:20→16:38)
[2019-01-09] MEDS: LITHIUM CARBONATE 300 MG CAPSULE PO SCH ×2 (08:20→16:38)
[2019-01-09] MEDS: CITALOPRAM HYDROBROMIDE 10 MG TABLET PO SCH (08:20)
[2019-01-09 08:25] VITALS: BP 109/64
[2019-01-09] MEDS: LORazepam 2 MG TABLET PO PRN (11:31)
[2019-01-09] MEDS: ACETAMINOPHEN 325 MG TABLET PO PRN (11:32)
[2019-01-09] MEDS: FERROUS SULFATE 325 MG EC TABLET PO SCH (16:39)
[2019-01-09 17:00] VITALS: BP 108/68
[2019-01-09] MEDS ORDERED: TUBERCULIN, PURIFIED PROTEIN DERIVATIVE 5 TU/0.1 ML SYRINGE ID ONE (17:45)
[2019-01-09] MEDS: BENZTROPINE MESYLATE 1 MG TABLET PO SCH (20:11)
[2019-01-09] MEDS: ChlorproMAZINE HCL 100 MG TABLET PO SCH (20:11)
[2019-01-09] MEDS: ZOLPIDEM TARTRATE 10 MG TABLET PO PRN (20:50)
[2019-01-10] MEDS: FERROUS SULFATE 325 MG EC TABLET PO SCH ×2 (07:01→17:33)
[2019-01-10 08:00] VITALS: BP 102/68
[2019-01-10] MEDS: CITALOPRAM HYDROBROMIDE 10 MG TABLET PO SCH (08:10)
[2019-01-10] MEDS: MULTIVITAMINS WITH MINERALS, THERAPEUTIC TABLET PO SCH (08:10)
[2019-01-10] MEDS: LACTOBAC ACID/BULG/BIFID/THERM TABLET PO SCH ×2 (08:10→17:33)
[2019-01-10] MEDS: LITHIUM CARBONATE 600 MG CAPSULE PO SCH ×2 (08:10→17:33)
[2019-01-10 17:25] VITALS: BP 102/66
[2019-01-10] MEDS: BENZTROPINE MESYLATE 1 MG TABLET PO SCH (20:16)
[2019-01-10] MEDS: ChlorproMAZINE HCL 100 MG TABLET PO SCH (20:16)
[2019-01-11] MEDS: FERROUS SULFATE 325 MG EC TABLET PO SCH ×2 (07:05→16:52)
[2019-01-11] MEDS: LITHIUM CARBONATE 600 MG CAPSULE PO SCH ×2 (08:27→16:52)
[2019-01-11] MEDS: LACTOBAC ACID/BULG/BIFID/THERM TABLET PO SCH ×2 (08:27→16:52)
[2019-01-11] MEDS: MULTIVITAMINS WITH MINERALS, THERAPEUTIC TABLET PO SCH (08:27)
[2019-01-11] MEDS: CITALOPRAM HYDROBROMIDE 10 MG TABLET PO SCH (08:27)
[2019-01-11 09:30] VITALS: BP 101/63
[2019-01-11 17:03] VITALS: BP 111/69
[2019-01-11] MEDS: BENZTROPINE MESYLATE 1 MG TABLET PO SCH (21:34)
[2019-01-11] MEDS: ChlorproMAZINE HCL 100 MG TABLET PO SCH (21:34)
[2019-01-12 02:14] VITALS: BP 115/63
[2019-01-12] MEDS: ZOLPIDEM TARTRATE 10 MG TABLET PO PRN (02:20)
[2019-01-12] MEDS: FERROUS SULFATE 325 MG EC TABLET PO SCH ×2 (07:04→16:18)
[2019-01-12 08:11] VITALS: BP 109/55
[2019-01-12] MEDS: CITALOPRAM HYDROBROMIDE 10 MG TABLET PO SCH (08:21)
[2019-01-12] MEDS: LITHIUM CARBONATE 600 MG CAPSULE PO SCH ×2 (08:21→16:18)
[2019-01-12] MEDS: MULTIVITAMINS WITH MINERALS, THERAPEUTIC TABLET PO SCH (08:21)
[2019-01-12] MEDS: LACTOBAC ACID/BULG/BIFID/THERM TABLET PO SCH ×2 (08:21→16:18)
[2019-01-12] MEDS: HYPROMELLOSE 0.5% 15 ML OPHTHALMIC SOLUTION OU PRN (09:41)
[2019-01-12] MEDS: LORazepam 2 MG TABLET PO PRN (17:05)
[2019-01-12 17:23] VITALS: BP 100/62
[2019-01-12] MEDS: BENZTROPINE MESYLATE 1 MG TABLET PO SCH (20:55)
[2019-01-12] MEDS: ChlorproMAZINE HCL 100 MG TABLET PO SCH (20:55)
[2019-01-13 00:48] VITALS: BP 97/66
[2019-01-13] MEDS: HYPROMELLOSE 0.5% 15 ML OPHTHALMIC SOLUTION OU PRN (06:39)
[2019-01-13] MEDS: FERROUS SULFATE 325 MG EC TABLET PO SCH ×2 (07:04→17:34)
[2019-01-13] MEDS: MULTIVITAMINS WITH MINERALS, THERAPEUTIC TABLET PO SCH (08:43)
[2019-01-13] MEDS: CITALOPRAM HYDROBROMIDE 10 MG TABLET PO SCH (08:43)
[2019-01-13] MEDS: LACTOBAC ACID/BULG/BIFID/THERM TABLET PO SCH ×2 (08:43→17:34)
[2019-01-13] MEDS: LITHIUM CARBONATE 600 MG CAPSULE PO SCH ×2 (08:43→17:34)
[2019-01-13 10:00] VITALS: BP 105/71
[2019-01-13] MEDS: LORazepam 2 MG TABLET PO PRN (14:00)
[2019-01-13] MEDS ORDERED: TUBERCULIN, PURIFIED PROTEIN DERIVATIVE 5 TU/0.1 ML SYRINGE ID ONE (15:45)
[2019-01-13 19:13] VITALS: BP 116/67
[2019-01-13] MEDS: BENZTROPINE MESYLATE 1 MG TABLET PO SCH (20:40)
[2019-01-13] MEDS: ChlorproMAZINE HCL 100 MG TABLET PO SCH (20:40)
[2019-01-14] MEDS: HYPROMELLOSE 0.5% 15 ML OPHTHALMIC SOLUTION OU PRN ×2 (03:38→16:35)
[2019-01-14 03:45] VITALS: BP 101/64
[2019-01-14] MEDS: LORazepam 2 MG TABLET PO PRN (05:58)
[2019-01-14] MEDS: FERROUS SULFATE 325 MG EC TABLET PO SCH ×2 (07:03→16:35)
[2019-01-14 08:22] VITALS: BP 109/66
[2019-01-14] MEDS: CITALOPRAM HYDROBROMIDE 10 MG TABLET PO SCH (08:32)
[2019-01-14] MEDS: LACTOBAC ACID/BULG/BIFID/THERM TABLET PO SCH ×2 (08:32→16:35)
[2019-01-14] MEDS: LITHIUM CARBONATE 600 MG CAPSULE PO SCH ×2 (08:32→16:35)
[2019-01-14] MEDS: MULTIVITAMINS WITH MINERALS, THERAPEUTIC TABLET PO SCH (08:33)
[2019-01-14 17:36] VITALS: BP 107/65
[2019-01-14] MEDS: ZOLPIDEM TARTRATE 10 MG TABLET PO PRN (20:21)
[2019-01-14] MEDS: ChlorproMAZINE HCL 100 MG TABLET PO SCH (20:21)
[2019-01-14] MEDS: BENZTROPINE MESYLATE 1 MG TABLET PO SCH (20:22)
[2019-01-15 02:17] VITALS: BP 107/69
[2019-01-15] MEDS: FERROUS SULFATE 325 MG EC TABLET PO SCH ×2 (07:12→17:04)
[2019-01-15] MEDS: LACTOBAC ACID/BULG/BIFID/THERM TABLET PO SCH ×2 (08:50→17:04)
[2019-01-15] MEDS: MULTIVITAMINS WITH MINERALS, THERAPEUTIC TABLET PO SCH (08:50)
[2019-01-15] MEDS: CITALOPRAM HYDROBROMIDE 10 MG TABLET PO SCH (08:50)
[2019-01-15] MEDS: LITHIUM CARBONATE 600 MG CAPSULE PO SCH ×2 (08:50→17:04)
[2019-01-15] MEDS: HYPROMELLOSE 0.5% 15 ML OPHTHALMIC SOLUTION OU PRN (08:50)
[2019-01-15 09:28] VITALS: BP 110/61
[2019-01-15] MEDS: LORazepam 2 MG TABLET PO PRN ×2 (10:30→17:30)
[2019-01-15 16:53] VITALS: BP 103/60
[2019-01-15] MEDS: ChlorproMAZINE HCL 100 MG TABLET PO SCH (20:25)
[2019-01-15] MEDS: BENZTROPINE MESYLATE 1 MG TABLET PO SCH (20:25)
[2019-01-15] MEDS: ZOLPIDEM TARTRATE 10 MG TABLET PO PRN (22:33)
[2019-01-16] MEDS: FERROUS SULFATE 325 MG EC TABLET PO SCH ×2 (06:51→16:44)
[2019-01-16] MEDS: LACTOBAC ACID/BULG/BIFID/THERM TABLET PO SCH ×2 (09:09→16:44)
[2019-01-16] MEDS: CITALOPRAM HYDROBROMIDE 10 MG TABLET PO SCH (09:09)
[2019-01-16] MEDS: MULTIVITAMINS WITH MINERALS, THERAPEUTIC TABLET PO SCH (09:09)
[2019-01-16] MEDS: LITHIUM CARBONATE 600 MG CAPSULE PO SCH ×2 (09:09→16:44)
[2019-01-16 09:55] VITALS: BP 105/62
[2019-01-16 13:05] VITALS: BP 103/66
[2019-01-16] MEDS: HALOPERIDOL 5 MG TABLET PO PRN ×2 (13:13→18:13)
[2019-01-16] MEDS: ACETAMINOPHEN 325 MG TABLET PO PRN (13:15)
[2019-01-16 14:27] VITALS: BP 108/68
[2019-01-16 17:00] VITALS: BP 104/60
[2019-01-16] MEDS: ChlorproMAZINE HCL 100 MG TABLET PO SCH (20:26)
[2019-01-16] MEDS: BENZTROPINE MESYLATE 1 MG TABLET PO SCH (20:26)
[2019-01-17 02:05] VITALS: BP 103/65
[2019-01-17] MEDS: ZOLPIDEM TARTRATE 10 MG TABLET PO PRN (02:06)
[2019-01-17] MEDS: FERROUS SULFATE 325 MG EC TABLET PO SCH ×2 (07:27→16:50)
[2019-01-17] MEDS: CITALOPRAM HYDROBROMIDE 10 MG TABLET PO SCH (08:27)
[2019-01-17] MEDS: LACTOBAC ACID/BULG/BIFID/THERM TABLET PO SCH ×2 (08:27→16:50)
[2019-01-17] MEDS: LITHIUM CARBONATE 600 MG CAPSULE PO SCH ×2 (08:27→16:50)
[2019-01-17] MEDS: MULTIVITAMINS WITH MINERALS, THERAPEUTIC TABLET PO SCH (08:27)
[2019-01-17] MEDS: LORazepam 2 MG TABLET PO PRN (08:27)
[2019-01-17 09:53] VITALS: BP 106/64
[2019-01-17] MEDS: HALOPERIDOL 5 MG TABLET PO PRN (17:18)
[2019-01-17] MEDS: BENZTROPINE MESYLATE 1 MG TABLET PO SCH (20:41)
[2019-01-17] MEDS: ChlorproMAZINE HCL 100 MG TABLET PO SCH (20:41)
[2019-01-17 22:58] VITALS: BP 126/64
[2019-01-18 04:12] VITALS: BP 145/62
[2019-01-18] MEDS: HYPROMELLOSE 0.5% 15 ML OPHTHALMIC SOLUTION OU PRN (06:55)
[2019-01-18] MEDS: FERROUS SULFATE 325 MG EC TABLET PO SCH ×2 (07:01→16:28)
[2019-01-18 09:01] VITALS: BP 124/68
[2019-01-18] MEDS: CITALOPRAM HYDROBROMIDE 10 MG TABLET PO SCH (09:30)
[2019-01-18] MEDS: LITHIUM CARBONATE 600 MG CAPSULE PO SCH ×2 (09:30→16:28)
[2019-01-18] MEDS: LACTOBAC ACID/BULG/BIFID/THERM TABLET PO SCH ×2 (09:30→16:28)
[2019-01-18] MEDS: MULTIVITAMINS WITH MINERALS, THERAPEUTIC TABLET PO SCH (09:31)
[2019-01-18] MEDS: LORazepam 2 MG TABLET PO PRN (10:06)
[2019-01-18 12:28] LABS: ALANINE AMINOTRANSFERASE 28 U/L (12-78); ALBUMIN 3.7 g/dL (3.4-5.0); ALKALINE PHOSPHATASE 62 U/L (46-116); ANION GAP 8 mmol/L (8-16); ASPARTATE AMINOTRANSFERASE 18 U/L (15-37); BILIRUBIN,TOTAL 0.4 mg/dL (0.1-1.0); CALCIUM, TOTAL 9.3 mg/dL (8.8-10.5); CARBON DIOXIDE 26 mmol/L (22-29); CHLORIDE 103 mmol/L (98-107); CREATININE 0.98 mg/dL (0.60-1.30); GLOMERULAR FILTR. RATE CALC > 60 mL/min (>60); GLUCOSE,RANDOM 87 mg/dL (70-110); POTASSIUM 4.2 mmol/L (3.5-5.1); SODIUM SERUM 137 mmol/L (136-145); TOTAL PROTEIN, SERUM 7.3 g/dL (6.4-8.2); UREA NITROGEN, BLOOD 16 mg/dL (7-18)
[2019-01-18] MEDS: HALOPERIDOL 5 MG TABLET PO PRN (15:34)
[2019-01-18 16:57] VITALS: BP 105/66
[2019-01-18] MEDS: ChlorproMAZINE HCL 100 MG TABLET PO SCH (20:41)
[2019-01-18] MEDS: BENZTROPINE MESYLATE 1 MG TABLET PO SCH (20:41)
[2019-01-19] MEDS: LORazepam 2 MG TABLET PO PRN ×2 (07:09→16:38)
[2019-01-19] MEDS: FERROUS SULFATE 325 MG EC TABLET PO SCH ×2 (07:09→16:00)
[2019-01-19] MEDS: CITALOPRAM HYDROBROMIDE 10 MG TABLET PO SCH (09:01)
[2019-01-19] MEDS: LACTOBAC ACID/BULG/BIFID/THERM TABLET PO SCH ×2 (09:01→16:00)
[2019-01-19] MEDS: MULTIVITAMINS WITH MINERALS, THERAPEUTIC TABLET PO SCH (09:01)
[2019-01-19] MEDS: LITHIUM CARBONATE 600 MG CAPSULE PO SCH ×2 (09:01→16:00)
[2019-01-19 09:25] VITALS: BP 97/69
[2019-01-19 16:22] VITALS: BP 123/81
[2019-01-19] MEDS: HALOPERIDOL 5 MG TABLET PO PRN (16:38)
[2019-01-19] MEDS: BENZTROPINE MESYLATE 1 MG TABLET PO SCH (20:19)
[2019-01-19] MEDS: ChlorproMAZINE HCL 100 MG TABLET PO SCH (20:19)
[2019-01-20] MEDS: FERROUS SULFATE 325 MG EC TABLET PO SCH ×2 (07:05→18:49)
[2019-01-20] MEDS: LACTOBAC ACID/BULG/BIFID/THERM TABLET PO SCH ×2 (07:57→16:01)
[2019-01-20] MEDS: LITHIUM CARBONATE 600 MG CAPSULE PO SCH ×2 (07:57→16:01)
[2019-01-20] MEDS: CITALOPRAM HYDROBROMIDE 10 MG TABLET PO SCH (07:57)
[2019-01-20] MEDS: MULTIVITAMINS WITH MINERALS, THERAPEUTIC TABLET PO SCH (07:57)
[2019-01-20 08:56] VITALS: BP 127/68
[2019-01-20] MEDS: HALOPERIDOL 5 MG TABLET PO PRN ×2 (09:04→16:00)
[2019-01-20 17:03] VITALS: BP 98/55
[2019-01-20] MEDS: ChlorproMAZINE HCL 100 MG TABLET PO SCH (20:02)
[2019-01-20] MEDS: BENZTROPINE MESYLATE 1 MG TABLET PO SCH (20:02)
[2019-01-20] MEDS: HYPROMELLOSE 0.5% 15 ML OPHTHALMIC SOLUTION OU PRN (20:05)
[2019-01-21 02:11] VITALS: BP 98/62
[2019-01-21] MEDS: FERROUS SULFATE 325 MG EC TABLET PO SCH ×2 (07:24→16:58)
[2019-01-21 08:00] VITALS: BP 98/68
[2019-01-21] MEDS: LACTOBAC ACID/BULG/BIFID/THERM TABLET PO SCH ×2 (08:03→16:59)
[2019-01-21] MEDS: LITHIUM CARBONATE 600 MG CAPSULE PO SCH ×2 (08:03→16:59)
[2019-01-21] MEDS: HALOPERIDOL 5 MG TABLET PO PRN ×2 (08:04→13:12)
[2019-01-21] MEDS: MULTIVITAMINS WITH MINERALS, THERAPEUTIC TABLET PO SCH (08:04)
[2019-01-21] MEDS: CITALOPRAM HYDROBROMIDE 10 MG TABLET PO SCH (08:04)
[2019-01-21 16:00] VITALS: BP 96/62
[2019-01-21] MEDS: LORazepam 2 MG TABLET PO PRN (17:04)
[2019-01-21] MEDS: BENZTROPINE MESYLATE 1 MG TABLET PO SCH (21:00)
[2019-01-21] MEDS: ChlorproMAZINE HCL 100 MG TABLET PO SCH (21:00)
[2019-01-22] MEDS: FERROUS SULFATE 325 MG EC TABLET PO SCH ×2 (06:52→16:32)
[2019-01-22] MEDS: LITHIUM CARBONATE 600 MG CAPSULE PO SCH ×2 (08:06→16:32)
[2019-01-22] MEDS: LACTOBAC ACID/BULG/BIFID/THERM TABLET PO SCH ×2 (08:06→16:33)
[2019-01-22] MEDS: MULTIVITAMINS WITH MINERALS, THERAPEUTIC TABLET PO SCH (08:06)
[2019-01-22] MEDS: CITALOPRAM HYDROBROMIDE 10 MG TABLET PO SCH (08:06)
[2019-01-22] MEDS: HALOPERIDOL 5 MG TABLET PO PRN ×3 (08:49→17:56)
[2019-01-22] MEDS: HYPROMELLOSE 0.5% 15 ML OPHTHALMIC SOLUTION OU PRN (08:51)
[2019-01-22 09:57] VITALS: BP 117/67
[2019-01-22 18:08] VITALS: BP 116/63
[2019-01-22] MEDS: ChlorproMAZINE HCL 100 MG TABLET PO SCH (20:47)
[2019-01-22] MEDS: BENZTROPINE MESYLATE 1 MG TABLET PO SCH (20:48)
[2019-01-23 02:40] VITALS: BP 96/60
[2019-01-23] MEDS: ZOLPIDEM TARTRATE 10 MG TABLET PO PRN (02:43)
[2019-01-23] MEDS: FERROUS SULFATE 325 MG EC TABLET PO SCH ×2 (06:51→16:12)
[2019-01-23] MEDS: MULTIVITAMINS WITH MINERALS, THERAPEUTIC TABLET PO SCH (08:23)
[2019-01-23] MEDS: LACTOBAC ACID/BULG/BIFID/THERM TABLET PO SCH ×2 (08:23→16:12)
[2019-01-23] MEDS: CITALOPRAM HYDROBROMIDE 10 MG TABLET PO SCH (08:23)
[2019-01-23] MEDS: LITHIUM CARBONATE 600 MG CAPSULE PO SCH ×2 (08:23→16:12)
[2019-01-23] MEDS: LORazepam 2 MG TABLET PO PRN ×2 (08:25→14:14)
[2019-01-23] MEDS: HYPROMELLOSE 0.5% 15 ML OPHTHALMIC SOLUTION OU PRN (08:26)
[2019-01-23 08:30] VITALS: BP 98/55
[2019-01-23 16:26] VITALS: BP 98/73
[2019-01-23] MEDS: ChlorproMAZINE HCL 100 MG TABLET PO SCH (20:01)
[2019-01-23] MEDS: BENZTROPINE MESYLATE 1 MG TABLET PO SCH (20:01)
[2019-01-24] MEDS: FERROUS SULFATE 325 MG EC TABLET PO SCH ×2 (07:09→17:09)
[2019-01-24 08:00] VITALS: BP 120/79
[2019-01-24] MEDS: MULTIVITAMINS WITH MINERALS, THERAPEUTIC TABLET PO SCH (08:54)
[2019-01-24] MEDS: LORazepam 2 MG TABLET PO PRN ×2 (08:54→17:08)
[2019-01-24] MEDS: LACTOBAC ACID/BULG/BIFID/THERM TABLET PO SCH ×2 (08:55→17:09)
[2019-01-24] MEDS: HYPROMELLOSE 0.5% 15 ML OPHTHALMIC SOLUTION OU PRN (08:55)
[2019-01-24] MEDS: LITHIUM CARBONATE 600 MG CAPSULE PO SCH ×2 (08:55→17:09)
[2019-01-24] MEDS: CITALOPRAM HYDROBROMIDE 10 MG TABLET PO SCH (08:56)
[2019-01-24] MEDS: HALOPERIDOL 5 MG TABLET PO PRN ×2 (12:48→17:09)
[2019-01-24 18:25] VITALS: BP 109/58
[2019-01-24] MEDS: ChlorproMAZINE HCL 100 MG TABLET PO SCH (20:14)
[2019-01-24] MEDS: BENZTROPINE MESYLATE 1 MG TABLET PO SCH (20:15)
[2019-01-25 03:45] VITALS: BP 101/52
[2019-01-25] MEDS: LORazepam 2 MG TABLET PO PRN ×3 (03:50→17:20)
[2019-01-25] MEDS: FERROUS SULFATE 325 MG EC TABLET PO SCH ×2 (07:18→16:52)
[2019-01-25] MEDS: LACTOBAC ACID/BULG/BIFID/THERM TABLET PO SCH ×2 (09:28→16:52)
[2019-01-25] MEDS: LITHIUM CARBONATE 600 MG CAPSULE PO SCH ×2 (09:28→16:52)
[2019-01-25] MEDS: CITALOPRAM HYDROBROMIDE 10 MG TABLET PO SCH (09:29)
[2019-01-25] MEDS: MULTIVITAMINS WITH MINERALS, THERAPEUTIC TABLET PO SCH (09:29)
[2019-01-25 09:36] VITALS: BP 102/62
[2019-01-25] MEDS: HALOPERIDOL 5 MG TABLET PO PRN ×2 (10:45→17:21)
[2019-01-25 16:00] VITALS: BP 116/73
[2019-01-25] MEDS: BENZTROPINE MESYLATE 1 MG TABLET PO SCH (20:22)
[2019-01-25] MEDS: ChlorproMAZINE HCL 100 MG TABLET PO SCH (20:22)
[2019-01-25] MEDS: ZOLPIDEM TARTRATE 10 MG TABLET PO PRN (21:58)
[2019-01-26 00:02] VITALS: BP 100/75
[2019-01-26] MEDS: HALOPERIDOL 5 MG TABLET PO PRN ×3 (00:17→16:15)
[2019-01-26] MEDS: LORazepam 2 MG TABLET PO PRN (06:44)
[2019-01-26] MEDS: FERROUS SULFATE 325 MG EC TABLET PO SCH ×2 (07:07→16:15)
[2019-01-26 09:11] VITALS: BP 103/68
[2019-01-26] MEDS: LITHIUM CARBONATE 600 MG CAPSULE PO SCH ×2 (09:54→16:15)
[2019-01-26] MEDS: CITALOPRAM HYDROBROMIDE 10 MG TABLET PO SCH (09:54)
[2019-01-26] MEDS: LACTOBAC ACID/BULG/BIFID/THERM TABLET PO SCH ×2 (09:54→16:15)
[2019-01-26] MEDS: MULTIVITAMINS WITH MINERALS, THERAPEUTIC TABLET PO SCH (09:54)
[2019-01-26 17:42] VITALS: BP 91/63
[2019-01-26 20:25] VITALS: BP 100/67
[2019-01-26] MEDS: ChlorproMAZINE HCL 100 MG TABLET PO SCH (20:27)
[2019-01-26] MEDS: BENZTROPINE MESYLATE 1 MG TABLET PO SCH (20:27)
[2019-01-27 00:52] VITALS: BP 96/68
[2019-01-27] MEDS: ZOLPIDEM TARTRATE 10 MG TABLET PO PRN (01:09)
[2019-01-27] MEDS: FERROUS SULFATE 325 MG EC TABLET PO SCH ×2 (07:04→19:23)
[2019-01-27] MEDS: LITHIUM CARBONATE 600 MG CAPSULE PO SCH ×2 (08:16→16:04)
[2019-01-27] MEDS: LACTOBAC ACID/BULG/BIFID/THERM TABLET PO SCH ×2 (08:16→16:04)
[2019-01-27] MEDS: MULTIVITAMINS WITH MINERALS, THERAPEUTIC TABLET PO SCH (08:16)
[2019-01-27] MEDS: CITALOPRAM HYDROBROMIDE 10 MG TABLET PO SCH (08:16)
[2019-01-27 08:51] VITALS: BP 112/62
[2019-01-27] MEDS: HALOPERIDOL 5 MG TABLET PO PRN (10:53)
[2019-01-27 16:21] VITALS: BP 107/72
[2019-01-27] MEDS: LORazepam 2 MG TABLET PO PRN (16:25)
[2019-01-27] MEDS: BENZTROPINE MESYLATE 1 MG TABLET PO SCH (20:12)
[2019-01-27] MEDS: ChlorproMAZINE HCL 100 MG TABLET PO SCH (20:12)
[2019-01-28 00:45] VITALS: BP 104/72
[2019-01-28] MEDS: ZOLPIDEM TARTRATE 10 MG TABLET PO PRN (00:54)
[2019-01-28] MEDS: FERROUS SULFATE 325 MG EC TABLET PO SCH ×2 (06:58→17:30)
[2019-01-28] MEDS: MULTIVITAMINS WITH MINERALS, THERAPEUTIC TABLET PO SCH (08:23)
[2019-01-28] MEDS: LITHIUM CARBONATE 600 MG CAPSULE PO SCH ×2 (08:23→16:09)
[2019-01-28] MEDS: LACTOBAC ACID/BULG/BIFID/THERM TABLET PO SCH ×2 (08:24→16:09)
[2019-01-28] MEDS: CITALOPRAM HYDROBROMIDE 10 MG TABLET PO SCH (08:24)
[2019-01-28 10:23] VITALS: BP 142/91
[2019-01-28] MEDS: LORazepam 2 MG TABLET PO PRN (13:36)
[2019-01-28] MEDS: HALOPERIDOL 5 MG TABLET PO PRN (16:10)
[2019-01-28 16:25] VITALS: BP 102/58
[2019-01-28] MEDS: ChlorproMAZINE HCL 100 MG TABLET PO SCH (20:33)
[2019-01-28] MEDS: BENZTROPINE MESYLATE 1 MG TABLET PO SCH (20:33)
[2019-01-28] MEDS: HYPROMELLOSE 0.5% 15 ML OPHTHALMIC SOLUTION OU PRN (21:00)
[2019-01-29 01:25] VITALS: BP 95/57
[2019-01-29] MEDS: FERROUS SULFATE 325 MG EC TABLET PO SCH ×2 (06:46→17:49)
[2019-01-29] MEDS: CITALOPRAM HYDROBROMIDE 20 MG TABLET PO SCH (08:47)
[2019-01-29] MEDS: LITHIUM CARBONATE 600 MG CAPSULE PO SCH ×2 (08:47→17:06)
[2019-01-29] MEDS: LACTOBAC ACID/BULG/BIFID/THERM TABLET PO SCH ×2 (08:47→17:06)
[2019-01-29] MEDS: MULTIVITAMINS WITH MINERALS, THERAPEUTIC TABLET PO SCH (08:47)
[2019-01-29 09:34] VITALS: BP 138/60
[2019-01-29] MEDS: HALOPERIDOL 5 MG TABLET PO PRN ×2 (09:56→16:01)
[2019-01-29 16:28] VITALS: BP 100/66
[2019-01-29] MEDS: LORazepam 2 MG TABLET PO PRN (18:53)
[2019-01-29] MEDS: BENZTROPINE MESYLATE 1 MG TABLET PO SCH (20:28)
[2019-01-29] MEDS: ChlorproMAZINE HCL 100 MG TABLET PO SCH (20:28)
[2019-01-30 02:11] VITALS: BP 91/60
[2019-01-30] MEDS: HYPROMELLOSE 0.5% 15 ML OPHTHALMIC SOLUTION OU PRN (05:50)
[2019-01-30] MEDS: FERROUS SULFATE 325 MG EC TABLET PO SCH ×2 (07:26→16:01)
[2019-01-30] MEDS: HALOPERIDOL 5 MG TABLET PO PRN ×2 (08:17→16:01)
[2019-01-30] MEDS: LACTOBAC ACID/BULG/BIFID/THERM TABLET PO SCH ×2 (08:17→16:01)
[2019-01-30] MEDS: LITHIUM CARBONATE 600 MG CAPSULE PO SCH ×2 (08:17→16:01)
[2019-01-30] MEDS: LORazepam 2 MG TABLET PO PRN ×2 (08:17→16:01)
[2019-01-30] MEDS: CITALOPRAM HYDROBROMIDE 20 MG TABLET PO SCH (08:17)
[2019-01-30] MEDS: MULTIVITAMINS WITH MINERALS, THERAPEUTIC TABLET PO SCH (08:17)
[2019-01-30 09:32] VITALS: BP 104/75
[2019-01-30] MEDS: IBUPROFEN 400 MG TABLET PO PRN (09:35)
[2019-01-30 18:48] VITALS: BP 116/73
[2019-01-30] MEDS: ChlorproMAZINE HCL 100 MG TABLET PO SCH (21:24)
[2019-01-30] MEDS: BENZTROPINE MESYLATE 1 MG TABLET PO SCH (21:24)
[2019-01-31 01:09] VITALS: BP 99/66
[2019-01-31] MEDS: FERROUS SULFATE 325 MG EC TABLET PO SCH ×2 (07:09→16:17)
[2019-01-31] MEDS: LACTOBAC ACID/BULG/BIFID/THERM TABLET PO SCH ×2 (08:39→16:17)
[2019-01-31] MEDS: CITALOPRAM HYDROBROMIDE 20 MG TABLET PO SCH (08:40)
[2019-01-31] MEDS: LITHIUM CARBONATE 600 MG CAPSULE PO SCH ×2 (08:40→16:17)
[2019-01-31] MEDS: MULTIVITAMINS WITH MINERALS, THERAPEUTIC TABLET PO SCH (08:40)
[2019-01-31 09:09] VITALS: BP 106/66
[2019-01-31] MEDS: IBUPROFEN 400 MG TABLET PO PRN (09:11)
[2019-01-31] MEDS: HALOPERIDOL 5 MG TABLET PO PRN (12:24)
[2019-01-31] MEDS: LORazepam 2 MG TABLET PO PRN (14:26)
[2019-01-31 17:00] VITALS: BP 95/55
[2019-01-31] MEDS: BENZTROPINE MESYLATE 1 MG TABLET PO SCH (20:07)
[2019-01-31] MEDS: ChlorproMAZINE HCL 100 MG TABLET PO SCH (20:07)
[2019-02-01] MEDS: FERROUS SULFATE 325 MG EC TABLET PO SCH ×2 (07:04→16:29)
[2019-02-01] MEDS: LACTOBAC ACID/BULG/BIFID/THERM TABLET PO SCH ×2 (08:16→16:29)
[2019-02-01] MEDS: MULTIVITAMINS WITH MINERALS, THERAPEUTIC TABLET PO SCH (08:16)
[2019-02-01] MEDS: LITHIUM CARBONATE 600 MG CAPSULE PO SCH ×2 (08:17→16:29)
[2019-02-01] MEDS: CITALOPRAM HYDROBROMIDE 20 MG TABLET PO SCH (08:17)
[2019-02-01] MEDS: HALOPERIDOL 5 MG TABLET PO PRN ×2 (08:18→15:13)
[2019-02-01 09:00] VITALS: BP 108/73
[2019-02-01 20:06] VITALS: BP 97/64
[2019-02-01] MEDS: ChlorproMAZINE HCL 100 MG TABLET PO SCH (20:18)
[2019-02-01] MEDS: BENZTROPINE MESYLATE 1 MG TABLET PO SCH (20:19)
[2019-02-02] MEDS: FERROUS SULFATE 325 MG EC TABLET PO SCH ×2 (07:02→17:31)
[2019-02-02] MEDS: LITHIUM CARBONATE 600 MG CAPSULE PO SCH ×2 (08:02→16:06)
[2019-02-02] MEDS: HALOPERIDOL 5 MG TABLET PO PRN ×2 (08:02→13:07)
[2019-02-02] MEDS: MULTIVITAMINS WITH MINERALS, THERAPEUTIC TABLET PO SCH (08:02)
[2019-02-02] MEDS: CITALOPRAM HYDROBROMIDE 20 MG TABLET PO SCH (08:02)
[2019-02-02] MEDS: LACTOBAC ACID/BULG/BIFID/THERM TABLET PO SCH ×2 (08:02→16:06)
[2019-02-02 09:00] VITALS: BP 111/66
[2019-02-02] MEDS: LORazepam 2 MG TABLET PO PRN (16:07)
[2019-02-02 16:22] VITALS: BP 107/65
[2019-02-02] MEDS: ChlorproMAZINE HCL 100 MG TABLET PO SCH (20:49)
[2019-02-02] MEDS: BENZTROPINE MESYLATE 1 MG TABLET PO SCH (20:49)
[2019-02-03] MEDS: FERROUS SULFATE 325 MG EC TABLET PO SCH ×2 (06:44→16:29)
[2019-02-03 08:00] VITALS: BP 116/64
[2019-02-03] MEDS: HALOPERIDOL 5 MG TABLET PO PRN ×2 (08:25→14:31)
[2019-02-03] MEDS: LITHIUM CARBONATE 600 MG CAPSULE PO SCH ×2 (08:25→16:29)
[2019-02-03] MEDS: LACTOBAC ACID/BULG/BIFID/THERM TABLET PO SCH ×2 (08:25→16:29)
[2019-02-03] MEDS: MULTIVITAMINS WITH MINERALS, THERAPEUTIC TABLET PO SCH (08:25)
[2019-02-03] MEDS: CITALOPRAM HYDROBROMIDE 20 MG TABLET PO SCH (08:25)
[2019-02-03] MEDS: LORazepam 2 MG TABLET PO PRN (08:26)
[2019-02-03 16:06] VITALS: BP 107/71
[2019-02-03] MEDS: ChlorproMAZINE HCL 100 MG TABLET PO SCH (21:42)
[2019-02-03] MEDS: BENZTROPINE MESYLATE 1 MG TABLET PO SCH (21:43)
[2019-02-04] MEDS: FERROUS SULFATE 325 MG EC TABLET PO SCH ×2 (06:41→16:30)
[2019-02-04 08:00] VITALS: BP 100/65
[2019-02-04] MEDS: MULTIVITAMINS WITH MINERALS, THERAPEUTIC TABLET PO SCH (08:12)
[2019-02-04] MEDS: LITHIUM CARBONATE 600 MG CAPSULE PO SCH ×2 (08:12→16:30)
[2019-02-04] MEDS: LORazepam 2 MG TABLET PO PRN (08:12)
[2019-02-04] MEDS: LACTOBAC ACID/BULG/BIFID/THERM TABLET PO SCH ×2 (08:12→16:30)
[2019-02-04] MEDS: CITALOPRAM HYDROBROMIDE 20 MG TABLET PO SCH (08:12)
[2019-02-04] MEDS: HALOPERIDOL 5 MG TABLET PO PRN ×2 (08:12→16:31)
[2019-02-04 16:33] VITALS: BP 107/58
[2019-02-04] MEDS: BENZTROPINE MESYLATE 1 MG TABLET PO SCH (20:05)
[2019-02-04] MEDS: ChlorproMAZINE HCL 100 MG TABLET PO SCH (20:06)
[2019-02-05] MEDS: FERROUS SULFATE 325 MG EC TABLET PO SCH ×2 (07:08→17:20)
[2019-02-05 08:00] VITALS: BP 119/72
[2019-02-05] MEDS: MULTIVITAMINS WITH MINERALS, THERAPEUTIC TABLET PO SCH (08:56)
[2019-02-05] MEDS: LACTOBAC ACID/BULG/BIFID/THERM TABLET PO SCH ×2 (08:57→16:24)
[2019-02-05] MEDS: LITHIUM CARBONATE 600 MG CAPSULE PO SCH ×2 (08:58→16:24)
[2019-02-05] MEDS: CITALOPRAM HYDROBROMIDE 20 MG TABLET PO SCH (08:58)
[2019-02-05] MEDS: LORazepam 2 MG TABLET PO PRN ×2 (10:06→19:00)
[2019-02-05] MEDS: HALOPERIDOL 5 MG TABLET PO PRN ×2 (10:06→19:00)
[2019-02-05 16:00] VITALS: BP 93/52
[2019-02-05 16:36] VITALS: BP 112/65
[2019-02-05] MEDS: BENZTROPINE MESYLATE 1 MG TABLET PO SCH (20:20)
[2019-02-05] MEDS: ChlorproMAZINE HCL 100 MG TABLET PO SCH (20:20)
[2019-02-06] MEDS: FERROUS SULFATE 325 MG EC TABLET PO SCH ×2 (06:37→17:29)
[2019-02-06 08:00] VITALS: BP 106/66
[2019-02-06] MEDS: LITHIUM CARBONATE 600 MG CAPSULE PO SCH ×2 (08:16→16:10)
[2019-02-06] MEDS: MULTIVITAMINS WITH MINERALS, THERAPEUTIC TABLET PO SCH (08:16)
[2019-02-06] MEDS: LACTOBAC ACID/BULG/BIFID/THERM TABLET PO SCH ×2 (08:16→16:09)
[2019-02-06] MEDS: LORazepam 2 MG TABLET PO PRN ×2 (08:16→16:10)
[2019-02-06] MEDS: HALOPERIDOL 5 MG TABLET PO PRN ×2 (08:16→16:10)
[2019-02-06] MEDS: CITALOPRAM HYDROBROMIDE 20 MG TABLET PO SCH (08:17)
[2019-02-06 08:59] LABS: BASOPHILS % (AUTO) 0.6 % (0.0-2.0); EOSINOPHILS % (AUTO) 6.2 % (1.0-6.0); HEMATOCRIT 46.4 % (41-53); HEMOGLOBIN 15.1 g/dL (13.5-17.5); LYMPHOCYTES # (AUTO) 1.5 K/uL (1.0-4.8); LYMPHOCYTES % (AUTO) 23.6 % (22.0-44.0); MEAN CORPUSCULAR HGB CONC 32.4 G/dL (31.0-37.0); MEAN CORPUSCULAR VOLUME 89 fL (80-100); MONOCYTES # (AUTO) 0.3 K/uL (0.1-1.0); NEUTROPHILS # (AUTO) 4.2 K/uL (1.8-7.7); NEUTROPHILS % (AUTO) 64.6 % (40.0-70.0); PLATELET COUNT (AUTO) 165 K/uL (150-450); RED BLOOD CELL COUNT(AUTO) 5.19 MIL/uL (4.50-5.90); RED CELL DISTRIBUTION WIDTH 14.7 % (11.5-14.5)
[2019-02-06 09:08] LABS: ANION GAP 9 mmol/L (8-16); CALCIUM, TOTAL 8.9 mg/dL (8.8-10.5); CARBON DIOXIDE 26 mmol/L (22-29); CHLORIDE 104 mmol/L (98-107); CREATININE 0.95 mg/dL (0.60-1.30); GLOMERULAR FILTR. RATE CALC > 60 mL/min (>60); GLUCOSE,RANDOM 143 mg/dL (70-110); POTASSIUM 3.7 mmol/L (3.5-5.1); SODIUM SERUM 139 mmol/L (136-145); UREA NITROGEN, BLOOD 14 mg/dL (7-18)
[2019-02-06 16:00] VITALS: BP 110/69
[2019-02-06] MEDS: BENZTROPINE MESYLATE 1 MG TABLET PO SCH (20:45)
[2019-02-06] MEDS: ChlorproMAZINE HCL 100 MG TABLET PO SCH (20:46)
[2019-02-07 02:27] VITALS: BP 97/74
[2019-02-07] MEDS: FERROUS SULFATE 325 MG EC TABLET PO SCH ×2 (07:04→18:04)
[2019-02-07] MEDS: LACTOBAC ACID/BULG/BIFID/THERM TABLET PO SCH ×2 (07:59→17:02)
[2019-02-07] MEDS: MULTIVITAMINS WITH MINERALS, THERAPEUTIC TABLET PO SCH (07:59)
[2019-02-07] MEDS: LITHIUM CARBONATE 600 MG CAPSULE PO SCH ×2 (07:59→17:02)
[2019-02-07] MEDS: CITALOPRAM HYDROBROMIDE 20 MG TABLET PO SCH (07:59)
[2019-02-07 08:00] VITALS: BP 114/69
[2019-02-07] MEDS: LORazepam 2 MG TABLET PO PRN ×2 (11:01→18:09)
[2019-02-07] MEDS: HALOPERIDOL 5 MG TABLET PO PRN ×2 (11:01→18:09)
[2019-02-07 16:00] VITALS: BP 104/72
[2019-02-07] MEDS: BENZTROPINE MESYLATE 1 MG TABLET PO SCH (20:33)
[2019-02-07] MEDS: ChlorproMAZINE HCL 100 MG TABLET PO SCH (20:33)
[2019-02-08] MEDS: FERROUS SULFATE 325 MG EC TABLET PO SCH ×2 (06:49→16:19)
[2019-02-08] MEDS: CITALOPRAM HYDROBROMIDE 20 MG TABLET PO SCH (09:08)
[2019-02-08] MEDS: LACTOBAC ACID/BULG/BIFID/THERM TABLET PO SCH ×2 (09:08→16:18)
[2019-02-08] MEDS: MULTIVITAMINS WITH MINERALS, THERAPEUTIC TABLET PO SCH (09:08)
[2019-02-08] MEDS: LITHIUM CARBONATE 600 MG CAPSULE PO SCH ×2 (09:08→16:18)
[2019-02-08] MEDS: HALOPERIDOL 5 MG TABLET PO PRN (11:35)
[2019-02-08] MEDS: LORazepam 2 MG TABLET PO PRN (11:35)
[2019-02-08 13:58] VITALS: BP 100/72
[2019-02-08 17:16] VITALS: BP 116/73
[2019-02-08] MEDS: BENZTROPINE MESYLATE 1 MG TABLET PO SCH (21:06)
[2019-02-08] MEDS: ChlorproMAZINE HCL 100 MG TABLET PO SCH (21:06)
[2019-02-09 02:35] VITALS: BP 104/72
[2019-02-09] MEDS: FERROUS SULFATE 325 MG EC TABLET PO SCH ×2 (06:49→16:56)
[2019-02-09] MEDS: LITHIUM CARBONATE 600 MG CAPSULE PO SCH ×2 (09:05→16:56)
[2019-02-09] MEDS: CITALOPRAM HYDROBROMIDE 20 MG TABLET PO SCH (09:06)
[2019-02-09] MEDS: MULTIVITAMINS WITH MINERALS, THERAPEUTIC TABLET PO SCH (09:06)
[2019-02-09] MEDS: LACTOBAC ACID/BULG/BIFID/THERM TABLET PO SCH ×2 (09:06→16:56)
[2019-02-09 10:16] VITALS: BP 140/68
[2019-02-09] MEDS: LORazepam 2 MG TABLET PO PRN (14:09)
[2019-02-09 16:02] VITALS: BP 120/81
[2019-02-09] MEDS: ChlorproMAZINE HCL 100 MG TABLET PO SCH (20:35)
[2019-02-09] MEDS: BENZTROPINE MESYLATE 1 MG TABLET PO SCH (20:35)
[2019-02-10 05:36] VITALS: BP 102/61
[2019-02-10] MEDS: FERROUS SULFATE 325 MG EC TABLET PO SCH ×2 (07:04→16:13)
[2019-02-10] MEDS: MULTIVITAMINS WITH MINERALS, THERAPEUTIC TABLET PO SCH (08:15)
[2019-02-10] MEDS: LITHIUM CARBONATE 600 MG CAPSULE PO SCH ×2 (08:16→16:13)
[2019-02-10] MEDS: LACTOBAC ACID/BULG/BIFID/THERM TABLET PO SCH ×2 (08:16→16:13)
[2019-02-10] MEDS: CITALOPRAM HYDROBROMIDE 20 MG TABLET PO SCH (08:16)
[2019-02-10] MEDS: LORazepam 2 MG TABLET PO PRN (08:18)
[2019-02-10 11:38] VITALS: BP 138/78
[2019-02-10 17:04] VITALS: BP 106/65
[2019-02-10] MEDS: HALOPERIDOL 5 MG TABLET PO PRN (17:25)
[2019-02-10] MEDS: BENZTROPINE MESYLATE 1 MG TABLET PO SCH (20:45)
[2019-02-10] MEDS: ChlorproMAZINE HCL 100 MG TABLET PO SCH (20:45)
[2019-02-11 02:45] VITALS: BP 120/68
[2019-02-11] MEDS: FERROUS SULFATE 325 MG EC TABLET PO SCH ×2 (07:15→16:59)
[2019-02-11] MEDS: MULTIVITAMINS WITH MINERALS, THERAPEUTIC TABLET PO SCH (08:24)
[2019-02-11] MEDS: LITHIUM CARBONATE 600 MG CAPSULE PO SCH ×2 (08:24→16:59)
[2019-02-11] MEDS: LACTOBAC ACID/BULG/BIFID/THERM TABLET PO SCH ×2 (08:24→16:59)
[2019-02-11] MEDS: CITALOPRAM HYDROBROMIDE 20 MG TABLET PO SCH (08:25)
[2019-02-11] MEDS: LORazepam 2 MG TABLET PO PRN (08:26)
[2019-02-11 09:46] VITALS: BP 124/84
[2019-02-11 16:30] VITALS: BP 133/86
[2019-02-11] MEDS: BENZTROPINE MESYLATE 1 MG TABLET PO SCH (20:23)
[2019-02-11] MEDS: ChlorproMAZINE HCL 100 MG TABLET PO SCH (20:23)
[2019-02-11] MEDS: ZOLPIDEM TARTRATE 10 MG TABLET PO PRN (20:23)
[2019-02-12 03:56] VITALS: BP 102/69
[2019-02-12] MEDS: FERROUS SULFATE 325 MG EC TABLET PO SCH ×2 (07:28→17:44)
[2019-02-12 08:00] VITALS: BP 111/54
[2019-02-12] MEDS: LITHIUM CARBONATE 600 MG CAPSULE PO SCH ×2 (08:51→15:58)
[2019-02-12] MEDS: LACTOBAC ACID/BULG/BIFID/THERM TABLET PO SCH ×2 (08:51→15:58)
[2019-02-12] MEDS: CITALOPRAM HYDROBROMIDE 20 MG TABLET PO SCH (08:51)
[2019-02-12] MEDS: MULTIVITAMINS WITH MINERALS, THERAPEUTIC TABLET PO SCH (08:52)
[2019-02-12] MEDS: HALOPERIDOL 5 MG TABLET PO PRN (09:18)
[2019-02-12] MEDS: LORazepam 2 MG TABLET PO PRN ×2 (09:18→18:13)
[2019-02-12] MEDS ORDERED: CITA-106 PO (13:04)
[2019-02-12 18:02] VITALS: BP 108/61
[2019-02-12] MEDS: BENZTROPINE MESYLATE 1 MG TABLET PO SCH (20:23)
[2019-02-12] MEDS: ChlorproMAZINE HCL 100 MG TABLET PO SCH (20:23)
[2019-02-13 04:16] VITALS: BP 124/77
[2019-02-13] MEDS: FERROUS SULFATE 325 MG EC TABLET PO SCH ×2 (06:53→17:02)
[2019-02-13] MEDS: MULTIVITAMINS WITH MINERALS, THERAPEUTIC TABLET PO SCH (09:01)
[2019-02-13] MEDS: CITALOPRAM HYDROBROMIDE 20 MG TABLET PO SCH (09:01)
[2019-02-13] MEDS: LACTOBAC ACID/BULG/BIFID/THERM TABLET PO SCH ×2 (09:01→17:02)
[2019-02-13] MEDS: LITHIUM CARBONATE 600 MG CAPSULE PO SCH ×2 (09:01→17:02)
[2019-02-13 09:23] VITALS: BP 91/67
[2019-02-13 17:00] VITALS: BP 108/63
[2019-02-13] MEDS: LORazepam 2 MG TABLET PO PRN (17:05)
[2019-02-13] MEDS: ChlorproMAZINE HCL 100 MG TABLET PO SCH (20:42)
[2019-02-13] MEDS: BENZTROPINE MESYLATE 1 MG TABLET PO SCH (20:42)
[2019-02-14 01:38] VITALS: BP 124/75
[2019-02-14] MEDS: FERROUS SULFATE 325 MG EC TABLET PO SCH ×2 (07:04→16:41)
[2019-02-14 08:39] VITALS: BP 126/68
[2019-02-14] MEDS: CITALOPRAM HYDROBROMIDE 20 MG TABLET PO SCH (08:39)
[2019-02-14] MEDS: LITHIUM CARBONATE 600 MG CAPSULE PO SCH ×2 (08:39→16:41)
[2019-02-14] MEDS: LACTOBAC ACID/BULG/BIFID/THERM TABLET PO SCH ×2 (08:39→16:40)
[2019-02-14] MEDS: MULTIVITAMINS WITH MINERALS, THERAPEUTIC TABLET PO SCH (08:39)
[2019-02-14 20:26] VITALS: BP 128/72
[2019-02-14] MEDS: ChlorproMAZINE HCL 100 MG TABLET PO SCH (21:12)
[2019-02-14] MEDS: BENZTROPINE MESYLATE 1 MG TABLET PO SCH (21:12)
[2019-02-15 00:38] VITALS: BP 105/74
[2019-02-15] MEDS: ZOLPIDEM TARTRATE 10 MG TABLET PO PRN (00:40)
[2019-02-15] MEDS: FERROUS SULFATE 325 MG EC TABLET PO SCH (06:55)
[2019-02-15] MEDS: LITHIUM CARBONATE 600 MG CAPSULE PO SCH (08:42)
[2019-02-15] MEDS: CITALOPRAM HYDROBROMIDE 20 MG TABLET PO SCH (08:42)
[2019-02-15] MEDS: LACTOBAC ACID/BULG/BIFID/THERM TABLET PO SCH (08:43)
[2019-02-15] MEDS: MULTIVITAMINS WITH MINERALS, THERAPEUTIC TABLET PO SCH (08:43)
[2019-02-15] MEDS: LORazepam 2 MG TABLET PO PRN (08:54)
[2019-02-15] MEDS ORDERED: ACID1TAB13 PO (09:10)
[2019-02-15] MEDS ORDERED: MULT-1239 PO (09:10)
[2019-02-15] MEDS ORDERED: FERR-89 PO (09:10)
== END 2019-02-15 09:25 | DRG 885 ==
LOC: 3EX 19:06
DX: F25.0 Schizoaffective disorder, bipolar type (principal); E43 Unspecified severe protein-calorie malnutrition; F15.20 Other stimulant dependence, uncomplicated; D64.9 Anemia, unspecified; R74.0 Nonspecific elevation of levels of transaminase and lactic acid dehydrogenase [LDH]; Z59.0 Homelessness; Z79.899 Other long term (current) drug therapy; Z87.01 Personal history of pneumonia (recurrent); Z68.22 Body mass index [BMI] 22.0-22.9, adult; Z88.1 Allergy status to other antibiotic agents; Z88.8 Allergy status to other drugs, medicaments and biological substances; Z91.018 Allergy to other foods
CPT/HCPCS: 87081; G0378